=== PATIENT | male | born 1955 ===

== ENCOUNTER → 2020-02-01 10:46 | Outpatient (BNVA) | payer OTHER, SELFPAY | PROVIDERS: PCP Internal Medicine; Referring Provider Internal Medicine; Visit Provider Urology | DX: Z76.89 Persons encountering health services in other specified circumstances (principal) ==

== ENCOUNTER → 2021-02-19 11:44 | Outpatient (BNVA) | payer OTHER, SELFPAY | PROVIDERS: PCP Internal Medicine; Visit Provider Urology ==

== ENCOUNTER → 2021-03-31 11:53 | Outpatient (BNVA) | payer OTHER, SELFPAY | PROVIDERS: PCP Internal Medicine; Visit Provider Urology ==

== ENCOUNTER 2021-04-06 05:56 | Day surgery (SDC) | payer OTHER, SELFPAY ==
[2021-03-30 15:20] VITALS: BMI 31.9
--- NOTE | 2021-04-03 09:44 | P.CONAN_ITS ---
Documented by User: Melanie Gabriel NP 04/03/21 09:44 HPI - Anesthesia Eval Consult details Narrative: 66yo M for Cystoscopy with Gemcitabine [facility] Active Problems Active Problems: All Active Problems (Updated 03/31/21 @ 12:46 by Kvng Armendariz MD) Bladder cancer (Acute) Past Medical History Medical History Back pain Bladder cancer History of kidney stones HTN (hypertension) Surgical History Surgical History History of cystoscopy Hx of transurethral destruction of bladder lesion Social History Social History Are you a primary long term care social worker to a significant other at home: No Do you presently have visiting nurse or other home services: No Have you been hit, kicked, punched, or otherwise hurt by someone within the past year? If so, by whom?: No Are you DNR?: No Advance Directives: No Advance Directives Information Provided: No Advance Directives on File: No Recently lost weight without trying: No Eating poorly because of decreased appetite: No Nutrition Risks: No Nutritional Risk Meds Allergies Allergy/AdvReac Type Severity Reaction Status Date / Time Penicillins [PENICILLINS] Allergy Unknown UNKNOWN Verified 03/30/21 14:49 Home Medications Medication Instructions Recorded Confirmed Last Taken Type amlodipine 5 mg 5 mg PO DAILY 02/19/21 03/30/21 Unknown History tablet losartan 25 mg 25 mg PO DAILY 02/19/21 03/30/21 Unknown History tablet Exam Exam Date and Time: April 03, 2021 0944 Height,Weight and Vital Signs: Height 5 ft 8 in Weight 95.254 kg Assessment and Plan Assessment Anesthesia Assessment: Chart Reviewed Documented by User: Corona Sandra MD 04/06/21 07:14 [facility] Past Medical History Medical History Back pain Bladder cancer History of kidney stones HTN (hypertension) Family History Family history of problems with anesthesia: No Surgical History Surgical History History of cystoscopy Hx of transurethral destruction of bladder lesion History of Problems with Anesthesia: No Social History Social History Are you a primary long term care social worker to a significant other at home: No Do you presently have visiting nurse or other home services: No Have you been hit, kicked, punched, or otherwise hurt by someone within the past year? If so, by whom?: No Are you DNR?: No Advance Directives: No Advance Directives Information Provided: No Advance Directives on File: No Recently lost weight without trying: No Eating poorly because of decreased appetite: No Nutrition Risks: No Nutritional Risk Meds Allergies Allergy/AdvReac Type Severity Reaction Status Date / Time Penicillins [PENICILLINS] Allergy Unknown UNKNOWN Verified 03/30/21 14:49 Home Medications Medication Instructions Recorded Confirmed Last Taken Type amlodipine 5 mg 5 mg PO DAILY 02/19/21 03/30/21 Unknown History tablet losartan 25 mg 25 mg PO DAILY 02/19/21 03/30/21 Unknown History tablet Exam Airway Mallampati Class: II TM Dist: >3cm Neck ROM: Full Loose/Missing/Broken Teeth: No Heart: [id number] Lungs: cta b/l Assessment and Plan Assessment Anesthesia Assessment: Anesthesia Plan Discussed Final Anesthetic Review Family History of Problems with Anesthesia: No History of Problems with Anesthesia: No NPO: Yes ASA Class: III Final Preanesthetic Review: No Changes in Pt Med Stat, Meds/Allgs Chart Reviewed, Consent Obtained/Reviewed and Anes Risks/Benef Reviewed Patient Risk: Intermediate Procedure Risk: Low Assessment/Block/Sedation in SS: Assess/Block/Sedation-SS Anesthetic Plan Anesthetic Plan: GA and Agree w/ Assess. and Plan Disposition: Standard PACU
[2021-04-06] VITALS (11 sets, daily range): BP systolic 118–155; BP diastolic 84–96; PULSE 71–80; RESP 16–18; TEMP 36.2–36.7; O2SAT 96–100
[2021-04-06] MEDS: Lactated Ringers 1,000 ML 100 ML IVCONT (06:31)
--- NOTE | 2021-04-06 07:57 | MHC.SHP ---
Pre-Procedural Eval Section A Date of Service: 04/06/21 The patient is an INPATIENT: No Changes since office visit: No Cold of Flu in the past 2 weeks, No New Medical Problems, No Changes in Medication and No Patient answered all questions The History & Physical has been completed within 30 days and I have reviewed it.: Yes Section B Chief Complaint: neoplasm of bladder Allergies: Allergies Allergy/AdvReac Type Severity Reaction Status Date / Time Penicillins [PENICILLINS] Allergy Unknown UNKNOWN Verified 03/30/21 14:49 Plan Diagnosis/Plan: Unchanged (cysto, bladder biopsy, gemcitabine) I have reviewed the history and physical and performed a pertinent physical examination on my patient. No changes have occurred unless specified.
[2021-04-06] MEDS: levoFLOXacin 500 MG TABLET PO (08:00)
--- NOTE | 2021-04-06 08:35 | W.PM.OPN ---
Operative Note Operative Note Date of Service: 04/06/21 Narrative: PreOperative Diagnosis: bladder cancer Post Operative Diagnosis: bladder cancer Procedure: bladder biopsy with extensive fulguration and Gemcitabine installation Surgeon: Dr Kvng Armendariz Anesthesia: general Indications for procedure: 66-year-old male. Prior diagnosis with high-grade superficial bladder cancer. Due to COVID had not presented for check cystoscopy. Recommendation for cystoscopy in operating room with bladder biopsy and gemcitabine. He had not completed induction gemcitabine. Procedure: After informed consent was verified the patient was brought to the operating room and placed in a supine position. Anesthesia was administered per protocol. the patient was placed in a modified dorsal lithotomy position and prepped and draped in a sterile fashion. Safety pause time-out was performed. Antibiotics were confirmed. 24 Filipino cystoscope inserted. There was small superficial regrowth on the posterior wall at the trigone and along the base of the trigone. There were changes throughout the bladder superficial. Biopsies were taken at 2 locations. The trigone where there was superficial mucosal change was fulgurated. At the completion of the procedure the bladder was irrigated. The cystoscope was removed. A [address] Duque catheter was inserted into the bladder. 10 cc was placed in the balloon. 2 g of gemcitabine in 100 cc of normal saline was instilled into the bladder. the flow from the catheter was left clamped. The inflow to the catheter was attached to a 3 L normal saline bag. The patient Tolerated the procedure well. They were extubated in the operating room and transferred in stable condition to the recovery area. Gemcitabine will remain in the bladder for 1 hour. At the completion of 1 hour the clamp will be removed. The gemcitabine will be allowed to egress to the urine collection bag. The 3 L bag of normal saline will be run at maximum rate through the bladder in order to dilute any residual gemcitabine. The Duque catheter will then be removed. Pathology: Bladder biopsies, recurrent superficial bladder cancer Drains: 3 way catheter
[2021-04-06] MEDS: oxyCODONE HCl Immed Release 5 MG TABLET 10 MG PO (08:52)
[2021-04-06] MEDS: Acetaminophen 325 MG TABLET 650 MG PO (08:52)
[2021-04-06] MEDS: fentaNYL citrate/PF 100 MCG/2 ML VIAL 50 MCG IVPUSH (09:24)
== END 2021-04-06 11:21 | disposition home or self-care (01) ==
PROVIDERS: PCP Internal Medicine; Visit Provider Urology
PROC: 0TJB8ZZ Inspection of Bladder, Via Natural or Artificial Opening Endoscopic (ICD-10-PCS; CPT 52000; principal; 2021-04-06 07:30)
DX: C67.9 Malignant neoplasm of bladder, unspecified (principal); I10 Essential (primary) hypertension; Z87.442 Personal history of urinary calculi
CPT/HCPCS: 52224; 51720; 88305; J2405; J3010; J9201

== ENCOUNTER 2021-04-15 15:21 | Outpatient (REF) | payer OTHER, SELFPAY ==
[2021-04-15 16:51] LABS: Urine Cytology See Pathology rpt
== END 2021-04-15 15:22 | disposition home or self-care (01) ==
LOC: HO.LNP 15:21
PROVIDERS: PCP Internal Medicine; Visit Provider Urology
DX: C67.9 Malignant neoplasm of bladder, unspecified (principal)
CPT/HCPCS: 88112

== ENCOUNTER → 2021-05-20 13:20 | Outpatient (BNVA) | payer OTHER, SELFPAY | PROVIDERS: PCP Internal Medicine; Visit Provider Urology | DX: C67.9 Malignant neoplasm of bladder, unspecified (principal) | CPT/HCPCS: 99212 ==

== ENCOUNTER 2021-08-20 10:08 | Outpatient (REF) | payer OTHER, SELFPAY ==
[2021-08-20 16:21] LABS: Urine Cytology See Pathology rpt
== END 2021-08-20 10:09 | disposition home or self-care (01) ==
LOC: HO.LAB 10:08
PROVIDERS: Visit Provider Urology
DX: C67.9 Malignant neoplasm of bladder, unspecified (principal)
CPT/HCPCS: 52000; 88112

== ENCOUNTER 2021-11-25 08:51 | Outpatient (REF) | payer OTHER, SELFPAY ==
[2021-11-25 17:40] LABS: Urine Cytology See Pathology rpt
== END 2021-11-25 08:52 | disposition home or self-care (01) ==
LOC: HO.LAB 08:51
PROVIDERS: Visit Provider Urology
DX: C67.9 Malignant neoplasm of bladder, unspecified (principal)
CPT/HCPCS: 52000; 88112

== ENCOUNTER 2022-02-23 08:46 | Outpatient (REF) | payer OTHER, SELFPAY ==
[2022-02-23 17:51] LABS: Urine Cytology See Pathology rpt
== END 2022-02-23 08:47 | disposition home or self-care (01) ==
LOC: HO.LAB 08:46
PROVIDERS: PCP Internal Medicine; Visit Provider Urology
DX: C67.9 Malignant neoplasm of bladder, unspecified (principal)
CPT/HCPCS: 52000; 88112

== ENCOUNTER → 2022-04-28 10:59 | Outpatient (BNVA) | payer OTHER, SELFPAY | PROVIDERS: PCP Internal Medicine; Visit Provider Urology | DX: Z13.89 Encounter for screening for other disorder (principal) ==

== ENCOUNTER 2022-05-24 06:00 | Day surgery (SDC) | payer OTHER, SELFPAY ==
[2022-05-18 14:20] VITALS: BMI 31.9
[2022-05-24 06:20] VITALS: BP 139/84; PULSE 73; RESP 16; TEMP 36.3; O2SAT 96
[2022-05-24] MEDS: Lactated Ringers 1,000 ML 50 ML IVCONT (06:27)
--- NOTE | 2022-05-24 07:24 | HO.ANESPROP2 ---
HPI - Anesthesia Eval Consult details Narrative: cysto, bladder bx PMFSH Active Problems Active Problems: All Active Problems (Updated 04/15/21 @ 16:02 by Kvng Armendariz MD) Bladder cancer (Acute) Arthritis (Acute) Past Medical History Medical History Back pain Bladder cancer History of kidney stones HTN (hypertension) Family History Family history of problems with anesthesia: No Surgical History Surgical History History of cystoscopy Hx of cystoscopy Hx of transurethral destruction of bladder lesion History of Problems with Anesthesia: No Social History Social History Are you a primary career development engineer to a significant other at home: No Do you presently have visiting nurse or other home services: No Patient Tobacco Use Status: Never used Tobacco Use of substances other than those prescribed or required for medical reasons: Yes Substance Use Frequency: Occasionally Are you DNR?: No Advance Directives: No Advance Directives Information Provided: Yes Meds Allergies Allergy/AdvReac Type Severity Reaction Status Date / Time Penicillins [PENICILLINS] Allergy Unknown UNKNOWN Verified 05/24/22 06:07 Active Medications: Current Medications Lactated Ringer's (Lr) 1,000 mls @ 50 mls/hr IVCONT .Q20H SHARIF Last Admin: 05/24/22 06:27 Dose: 50 mls/hr Home Medications Medication Instructions Recorded Confirmed Last Taken Type amlodipine 5 mg tablet 5 mg PO DAILY 02/19/21 05/24/22 05/24/22 05:30 History losartan 25 mg tablet 25 mg PO DAILY 02/19/21 05/24/22 Unknown History Exam Exam Date and Time: May 24, 2022 0724 Height,Weight and Vital Signs: Height 5 ft 8 in Weight 95.254 kg Last Vital Signs Temp 97.3 F 05/24/22 06:20 Pulse 73 05/24/22 06:20 Resp 16 05/24/22 06:20 BP 139/84 05/24/22 06:20 Pulse Ox 96 05/24/22 06:20 O2 Del Method Room Air 05/24/22 06:20 Airway Mallampati Class: I TM Dist: >3cm Neck ROM: Full Heart: ok Lungs: ok Assessment and Plan Assessment Anesthesia Assessment: Anesthesia Plan Discussed Final Anesthetic Review Family History of Problems with Anesthesia: No History of Problems with Anesthesia: No NPO: Yes ASA Class: II Final Preanesthetic Review: No Changes in Pt Med Stat, Meds/Allgs Chart Reviewed, Consent Obtained/Reviewed and Anes Risks/Benef Reviewed Patient Risk: Low Procedure Risk: Low Anesthetic Plan Anesthetic Plan: GA, MAC: and Agree w/ Assess. and Plan Disposition: Standard PACU
--- NOTE | 2022-05-24 07:35 | MHC.SHP ---
Pre-Procedural Eval Section A Date of Service: 05/24/22 The patient is an INPATIENT: No Changes since office visit: Yes Cold of Flu in the past 2 weeks, Yes New Medical Problems, Yes Changes in Medication and Yes Patient answered all questions The History & Physical has been completed within 30 days and I have reviewed it.: No Section B Chief Complaint: Malignant neoplasm of bladder, unspecified Allergies: Allergies Allergy/AdvReac Type Severity Reaction Status Date / Time Penicillins [PENICILLINS] Allergy Unknown UNKNOWN Verified 05/24/22 06:07 Plan Diagnosis/Plan: Unchanged (bladder biopsy fulgeration) I have reviewed the history and physical and performed a pertinent physical examination on my patient. No changes have occurred unless specified. Time Spent With Patient Time: Total time managing care of this patient today ____ minutes.
[2022-05-24] MEDS: Acetaminophen 325 MG TABLET 650 MG PO (07:41)
--- NOTE | 2022-05-24 08:17 | W.PM.OPN ---
Operative Note Operative Note Date of Service: 05/24/22 Narrative: PreOperative Diagnosis: bladder cancer Post Operative Diagnosis: bladder cancer Procedure: cystoscopy, bladder biopsy, fulguration, Surgeon: Dr Kvng Armendariz Anesthesia: LMA Indications for procedure: Superficial bladder cancer. Here for cystoscopy, bladder biopsy. Evaluation. Procedure: After informed consent was verified the patient was brought to the operating room and placed in a supine position. Anesthesia was administered per protocol. The patient was placed in modified dorsal lithotomy position and prepped and draped in a sterile fashion. Safety pause time-out was performed. Antibiotics being given. Cystoscopy was performed. Evidence of prior biopsy and fulguration throughout the bladder. Examination under narrow band light showed no areas of the bladder that were concerning. At the left ureteric orifice superficial recurrent bladder cancer was present. These areas were removed using the biopsy forceps with multiple cores. A Glidewire was placed and a 6 Micronesian by 26 cm stent was placed. Gentle fulguration was performed on the inferior aspect of the ureteric orifice wall. The patient tolerated the procedure well. They were extubated in operating room and transferred in stable conditions recovery area. Pathology: Bladder biopsies Drains: None
[2022-05-24 08:24] VITALS: BP 121/86; PULSE 92; RESP 14; TEMP 37.3; O2SAT 96
[2022-05-24 08:29] VITALS: BP 116/86; PULSE 75; RESP 17; O2SAT 99
[2022-05-24 08:34] VITALS: BP 103/76; PULSE 77; RESP 17; O2SAT 97
[2022-05-24 08:39] VITALS: BP 116/83; PULSE 80; RESP 17; O2SAT 99
[2022-05-24 08:54] VITALS: BP 122/82; PULSE 68; RESP 18; TEMP 36.1; O2SAT 99
== END 2022-05-24 09:16 | disposition home or self-care (01) ==
PROVIDERS: PCP Internal Medicine; Visit Provider Urology
PROC: (CPT 52332; principal; 2022-05-24 07:30)
DX: C67.6 Malignant neoplasm of ureteric orifice (principal); Z87.442 Personal history of urinary calculi; I10 Essential (primary) hypertension; M54.9 Dorsalgia, unspecified; Z79.899 Other long term (current) drug therapy; Z88.0 Allergy status to penicillin
CPT/HCPCS: 52332; 52204; 88305; C1769; C2617; J1956; J2250; J3010

== ENCOUNTER → 2022-06-04 15:21 | Outpatient (BNVA) | payer OTHER, SELFPAY | PROVIDERS: PCP Internal Medicine; Visit Provider Urology | DX: Z13.89 Encounter for screening for other disorder (principal) ==

== ENCOUNTER 2022-06-21 05:55 | Day surgery (SDC) | payer OTHER, SELFPAY ==
[2022-06-16 13:32] VITALS: BMI 31.9
--- NOTE | 2022-06-18 14:17 | HO.ANESPROP2 ---
Documented by User: Melanie Gabriel NP 06/18/22 14:17 HPI - Anesthesia Eval Consult details Narrative: 67yo M for Left Cystoscopy, Ureteroroscopy, Retro, Laser w/ possible stent exchange s/p cysto, etc 04/2022 with GA-LMA 4 PMFSH Active Problems Active Problems: All Active Problems (Updated 04/15/21 @ 16:02 by Kvng Armendariz MD) Bladder cancer (Acute) Arthritis (Acute) Past Medical History Medical History Back pain Bladder cancer History of kidney stones HTN (hypertension) Family History Family history of problems with anesthesia: No Surgical History Surgical History (Updated 06/16/22 @ 13:25 by My Mendiola RN) History of cystoscopy Hx of cystoscopy Hx of cystoscopy Hx of transurethral destruction of bladder lesion History of Problems with Anesthesia: No Social History Social History Are you a primary congregational care pastor to a significant other at home: No Do you presently have visiting nurse or other home services: No Patient Tobacco Use Status: Never used Tobacco Have you been hit, kicked, punched, or otherwise hurt by someone within the past year? If so, by whom?: No Are you DNR?: No Advance Directives: No Advance Directives Information Provided: Yes (brochure mailed) Advance Directives on File: No Recently lost weight without trying: No Eating poorly because of decreased appetite: No Nutrition Risks: No Nutritional Risk Meds Allergies Allergy/AdvReac Type Severity Reaction Status Date / Time Penicillins [PENICILLINS] Allergy Unknown UNKNOWN Verified 05/24/22 06:07 Home Medications Medication Instructions Recorded Confirmed Last Taken Type amlodipine 5 mg tablet 5 mg PO DAILY 02/19/21 06/16/22 05/24/22 05:30 History losartan 25 mg tablet 25 mg PO DAILY 02/19/21 06/16/22 Unknown History Exam Exam Date and Time: June 18, 2022 1417 Height,Weight and Vital Signs: Height 5 ft 8 in Weight 95.254 kg Assessment and Plan Assessment Anesthesia Assessment: Chart Reviewed Final Anesthetic Review Family History of Problems with Anesthesia: No History of Problems with Anesthesia: No Documented by User: Bobby Shaw MD 06/21/22 14:29 PMFSH Past Medical History Medical History Back pain Bladder cancer History of kidney stones HTN (hypertension) Surgical History Surgical History (Updated 06/16/22 @ 13:25 by My Mendiola RN) History of cystoscopy Hx of cystoscopy Hx of cystoscopy Hx of transurethral destruction of bladder lesion Social History Social History Are you a primary congregational care pastor to a significant other at home: No Do you presently have visiting nurse or other home services: No Patient Tobacco Use Status: Never used Tobacco Have you been hit, kicked, punched, or otherwise hurt by someone within the past year? If so, by whom?: No Are you DNR?: No Advance Directives: No Advance Directives Information Provided: Yes (brochure mailed) Advance Directives on File: No Recently lost weight without trying: No Eating poorly because of decreased appetite: No Nutrition Risks: No Nutritional Risk Meds Allergies Allergy/AdvReac Type Severity Reaction Status Date / Time Penicillins [PENICILLINS] Allergy Unknown UNKNOWN Verified 05/24/22 06:07 Home Medications Medication Instructions Recorded Confirmed Last Taken Type amlodipine 5 mg tablet 5 mg PO DAILY 02/19/21 06/16/22 05/24/22 05:30 History losartan 25 mg tablet 25 mg PO DAILY 02/19/21 06/16/22 Unknown History Exam Airway Mallampati Class: I TM Dist: >3cm Neck ROM: Full Heart: ok Lungs: ok Assessment and Plan Assessment Anesthesia Assessment: Anesthesia Plan Discussed Final Anesthetic Review NPO: Yes ASA Class: II Final Preanesthetic Review: No Changes in Pt Med Stat, Meds/Allgs Chart Reviewed, Consent Obtained/Reviewed and Anes Risks/Benef Reviewed Patient Risk: Low Procedure Risk: Low Anesthetic Plan Anesthetic Plan: GA and Agree w/ Assess. and Plan Disposition: Standard PACU
--- NOTE | ~2022-06-21 | FL_ITS ---
EXAMINATION: XR FLUOROSCOPY WITH IMAGES CLINICAL INFORMATION: Stent, urology. COMPARISON: Fluoroscopic spot view 03/05/2019 TECHNIQUE: Fluoroscopy Supervised By: Dr. Kvng Armendariz. Fluoroscopy Time: 25 seconds. Cumulative Dose: 13.15 mGy. Images: 1. FINDINGS: There is left ureteral stent with tip overlying the upper pole collecting system. There is mild caliectasis upper pole and middle pole calyx. FL/FL guidance in OR IMPRESSION: Fluoroscopy for urologic procedure.
[2022-06-21 11:56] VITALS: BP 153/96; PULSE 72; RESP 16; TEMP 36.4; O2SAT 96
[2022-06-21] MEDS: Lactated Ringers 1,000 ML 100 ML IVCONT (12:06)
--- NOTE | 2022-06-21 13:49 | MHC.SHP ---
Pre-Procedural Eval Section A Date of Service: 06/21/22 The patient is an INPATIENT: No Changes since office visit: No Cold of Flu in the past 2 weeks, No New Medical Problems, No Changes in Medication and No Patient answered all questions The History & Physical has been completed within 30 days and I have reviewed it.: Yes Section B Chief Complaint: Malignant neoplasm of bladder, unspecified Details of Present Illness: left distal ureter superficial bladder cancer, Relevant Family History (Specify if Yes): No Relevant Social History: None Present Medications: see Short Stay Collaborative assessment Medical History: Significant History History of Previous Operations: Relevant previous surgery/procedure and date(s) Allergies: Allergies Allergy/AdvReac Type Severity Reaction Status Date / Time Penicillins [PENICILLINS] Allergy Unknown UNKNOWN Verified 05/24/22 06:07 Review of Systems Sugical H&P ROS: Negative: Constitution, Cardiovascular, Respiratory, Neurological, Psychiatric, Hem-Onc, Allergic/Immunologic, Gastrointestinal, Genitourinary, Musculoskeletal, Integumentary, Endocrine and Eyes/Ears/Nose/Throat Exam Surgical H&P Exam: Normal: HEENT, Normal: Heart, Normal: Lungs, Normal: Extremities, Normal: Abdomen, Normal: Skin and Normal: Neurological Plan Diagnosis/Plan: Unchanged ( cystoscopy, left stent removal, left ureteroscopy with laser of lesion, ureteric orifice incision, stent placement) I have reviewed the history and physical and performed a pertinent physical examination on my patient. No changes have occurred unless specified. Time Spent With Patient Time: Total time managing care of this patient today ____ minutes.
[2022-06-21 15:06] VITALS: BP 142/89; PULSE 85; RESP 16; TEMP 36.2; O2SAT 96
[2022-06-21 15:11] VITALS: BP 136/88; PULSE 80; RESP 16; O2SAT 96
[2022-06-21 15:16] VITALS: BP 138/94; PULSE 70; RESP 16; O2SAT 96
[2022-06-21] MEDS: Phenazopyridine HCL 100 MG TABLET PO (15:17)
[2022-06-21] MEDS: traMADoL HCL 50 MG TABLET PO (15:17)
[2022-06-21 15:21] VITALS: BP 138/94; PULSE 70; RESP 16; O2SAT 96
[2022-06-21 15:36] VITALS: BP 145/92; PULSE 72; RESP 18; TEMP 37; O2SAT 96
--- NOTE | 2022-06-21 18:23 | W.PM.OPN ---
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 Anesthesia was administered per protocol. The patient was prepped and draped in a sterile fashion in lithotomy position. Safety pause time-out was performed. Antibiotics being given. cystoscopy performed. Bladder had indwelling left stent. There was evidence of stent irritation. The stent was grasped and removed without difficulty. The bladder was emptied. Retrograde examination performed. There did not appear to be any significant filling defect. sensor guidewire placed up to renal pelvis. Rigid diagnostic ureteroscopy performed. No evidence of bladder cancer beyond the opening of the distal ureter. After ureteroscopy performed the ureteral scope was removed. The open-ended catheter was placed back over the wire. The bladder was entered with the resectoscope. Using the Woodard hot knife the left ureteric orifice was incised open. Resectoscope was removed. The open-ended catheter was removed. The wire was backloaded through a cystoscope. A 7 Polish by 26 cm double-J stent was placed without difficulty. The patient tolerated the procedure well was extubated in operating room transferred in stable condition to the recovery area findings were discussed in recovery Pathology: none Drains: stent described
== END 2022-06-21 15:55 | disposition home or self-care (01) ==
PROVIDERS: PCP Internal Medicine; Visit Provider Urology
PROC: (CPT 52341; principal; 2022-06-21 12:00)
DX: C67.9 Malignant neoplasm of bladder, unspecified (principal); Z46.6 Encounter for fitting and adjustment of urinary device; I10 Essential (primary) hypertension; Z87.442 Personal history of urinary calculi; M54.9 Dorsalgia, unspecified; Z79.899 Other long term (current) drug therapy; Z88.0 Allergy status to penicillin
CPT/HCPCS: 52341; 52332; C1758; C1769; C2617; J1956; J3010; Q9967

== ENCOUNTER → 2022-07-02 09:54 | Outpatient (BNVA) | payer OTHER, SELFPAY | PROVIDERS: PCP Internal Medicine; Visit Provider Urology ==

== ENCOUNTER → 2022-08-25 10:46 | Outpatient (BNVA) | payer OTHER, SELFPAY | PROVIDERS: Visit Provider Urology | DX: Z46.6 Encounter for fitting and adjustment of urinary device (principal); N20.0 Calculus of kidney | CPT/HCPCS: 52310 ==

== ENCOUNTER 2022-10-08 09:11 | Outpatient (REF) | payer OTHER, SELFPAY ==
[2022-10-08 10:30] LABS: Appearance Urine Clear; Color Urine Yellow; Glucose Urine UA Negative (Negative); Leukocyte Esterase Urine Negative (Negative); Nitrite Urine Negative (Negative); Specific Gravity - Urine 1.015 (1.005-1.025); UMIC TRIGGER UA YES; Urine Blood Moderate (2+) (Negative); Urine Ketones Negative (Negative); Urine Protein Negative (Neg-Trace)
[2022-10-08 10:35] LABS: Bacteria Urine None Seen (None Seen); Hyaline Casts Urine 0-2 /LPF (0-2); Squamous Epithelial Cell Urine 0-2 /HPF (0-2); WBC Urine 0-5 /HPF (0-5)
== END 2022-10-08 09:12 | disposition home or self-care (01) ==
LOC: HO.LNP 09:11
PROVIDERS: Visit Provider Urology
DX: C67.9 Malignant neoplasm of bladder, unspecified (principal); R82.90 Unspecified abnormal findings in urine
CPT/HCPCS: 81001; 81003; 87086

== ENCOUNTER 2022-12-21 08:52 | Outpatient (AMB) | payer OTHER, SELFPAY ==
--- NOTE | 2022-12-21 08:53 | A.OFFVIS_ITS ---
Intake Intake Visit Reasons: 4m/cysto(Bladder Ca) Intake Note: Patient is Present for Cystoscopy Urology Med: Tamsulosin Antibiotic Allergy: Penicillins Blood Thinner:None Pharmacy: [facility] Disposable Cystoscope lot:[id number] exp:07/11/2024 Allergies Penicillins [PENICILLINS] Allergy (Unknown, Verified 12/21/22 08:55) UNKNOWN Mitomycin/cytarabine Allergy (Mild, Uncoded 02/10/23 11:55) Hives HPI HPI Comments History of Present Illness Details Zen is a pleasant male. He is a patient of Dr. Poon. He is seen for the following urologic issues - bladder cancer - nephrolithiasis 3m cysto f/u - will need 3 week boost MM C/Cytarabine Bladder Cancer: Superficial CIS Recurrent Bladder cancer was initially diagnosed Dr Armendariz 03/19. Bladder intervention(s) performed 03/19 , TURBT, Tis carcinoma in situ - 04/20 cysto bladder biopsy high-grade CIS - 04/21 TURBT with high-grade Ta and CIS - induction gemcitabine - 05/20 TURBT high grade in left UO Recurrence Risk per EORTC High Risk. 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 08/17 renal ultrasound. Bilateral renal cysts. Small stone left side - 04/21 MRI pelvis normal prostate no abnormalities noticed on wall of bladder Immunotherapy Induction 04/21. Boost 11/19, Induction [facility]/Cytarabine 05/20 Nephrolithiasis/Urolithiasis: They are here for further evaluation of nephrolithiasis. Urolithiasis was diagnosed ongoing - prior renal cyst and nephrolithiasis. The patient previously had kidney stones whose composition w unknown. 24 Hour urine evaluation none on file. Prior treatment(s) include observation. Prior imaging includes 01/16 , a renal ultrasound - 3 cyst on right kidney. 7 mm stone. Left kidney 3 cysts up to 2.5 cm with 6 mm stone. Complex cyst on left side Current therapeutic plan will be to continue with imaging surveillance [facility] Medical History HTN (hypertension) Back pain History of kidney stones Bladder cancer Surgical History Hx of cystoscopy Hx of cystoscopy History of cystoscopy Hx of transurethral destruction of bladder lesion Social History Are you a primary rn transitional care to a significant other at home: No Do you presently have visiting nurse or other home services: No Patient Tobacco Use Status: Never used Tobacco Review of Systems Const Denies chills and Denies fever(s) Card Reports no additional complaints and Denies syncope Resp Denies cough GI Denies abdominal pain and Denies heartburn Reports as per HPI and Denies change in libido Neuro Denies syncope Psych Denies change in libido Endo Denies change in libido Physical Exam Const General: cooperative, healthy appearing, comfortable and no acute distress Orientation/consciousness: patient oriented x3 HEENT Face and sinus: Yes normal facial exam Mouth: moist mucous membranes Neck Neck: Yes normal visual inspection, Yes full ROM and Yes trachea midline Chest Chest palpation & inspection: normal inspection of the chest Resp Effort & Inspection: normal respiratory effort, able to speak in complete sentences and no respiratory distress GI Inspection: Yes normal to inspection Back/Spine/Pelvis Cervical Spine: normal cervical lordosis Thoracic/Lumbar Spine: thoracic and lumbar spine normal to inspection Skin General skin exam: no rashes or lesions noted Neuro General: patient oriented x3, gait normal, tone normal and moves all extremities Extrem General: Yes normal to inspection and Yes capillary refill normal Office Procedures Cystoscopy Consent Discussed risk and benefit or proposed procedure with the patient. Information consent for procedure given to the patient. Discussed technical aspects, risks, benefits and alternatives in full. Addressed all of the patient's questions and concerns regarding the procedure. The patient demonstrated knowledge and understanding. They wish to proceed with this procedure. Preparation The patient was prepped in the usual manner. A warp doffer was present and in the room. Genitalia was prepped with betadine solution in a sterile manner. Lidocaine Jelly 2% was placed into the urethra and 16Fr flexible Olympus cystoscope was inserted into the meatus after adequate lubrication. Procedure Meatus circumcised Urethra anterior posterior urethra normal Prostatic Urethra unremarkable Bladder examination with retroflexion of cystoscope Bladder Orifices normal shape and position Bladder Capacity medium Trabeculations grade 2 Cellule Formation - Diverticulum Formation - Mucosal Erythema - Bladder Tumor - 14176-[id number] DISPOSABLE SCOPE URO-G FLEXIBLE SCOPE Procedure code (CPT) selection complete Office Meds lidocaine HCl 2 % mucosal jelly in applicator Performing Provider: Kvng Armendariz MD Performing Location: [facility] [place] [facility] Administered by: Nick Chopra LPN on 12/21/22 09:08 Dose Route Admin Location Dispensed Lot Number Expiration Date ND Commission Sales Associate 10 mL intra-urethral 10 mL nitrofurantoin monohydrate/macrocrystals 100 mg capsule Performing Provider: Kvng Armendariz MD Performing Location: [facility] [place] [facility] Administered by: Nick Chopra LPN on 12/21/22 09:08 Dose Route Admin Location Dispensed Lot Number Expiration Date NDC Commission Sales Associate 100 mg PO 1 cap naproxen 500 mg tablet Performing Provider: Kvng Armendariz MD Performing Location: [facility] [place] [facility] Administered by: Nick Chopra LPN on 12/21/22 09:08 Dose Route Admin Location Dispensed Lot Number Expiration Date NDC Commission Sales Associate 500 mg PO 1 tab Results AMB Urinalysis, Automated UA Leukoctes 0 Jordan/uL Last Edit by URI Starkey on 12/21/22 09:06 UA Nitrite Negative Last Edit by Melanie Martins Osei on 12/21/22 09:06 UA Urobilinogen 0.2 mg/dL Last Edit by Melanie Martins A on 12/21/22 09:0 6 UA Protein 0 mg/dL Last Edit by Melanie Martins Osei on 12/21/22 09:06 UA pH 5.5 Last Edit by Melanie Martins A on 12/21/22 09:06 UA Blood 200 Devang/uL Last Edit by URI Starkey on 12/21/22 09:06 UA Specific [place] 1.015 Last Edit by URI Starkey on 12/21/22 09: 06 UA Ketone Negative Last Edit by EMMANUEL StarkeyA on 12/21/22 09:06 UA Bilirubin 0 mg/dL Last Edit by Melanie Martins [facility] on 12/21/22 09:06 UA Glucose 0 mg/dL Last Edit by URI Starkey on 12/21/22 09:06 Results Reviewed Results Reviewed: Laboratory Last Values Urine pH (Auto) 5.5 12/21/22 08:56 Specific [place] (Auto) 1.015 12/21/22 08:56 Urine Protein (Auto) 0 mg/dL 12/21/22 08:56 Glucose (UA)(Auto) 0 mg/dL 12/21/22 08:56 Urine Ketones (Auto) Negative 12/21/22 08:56 Urine Blood (Auto) 200 Devang/uL 12/21/22 08:56 Urine Nitrite (Auto) Negative 12/21/22 08:56 Urine Bilirubin (Auto) 0 mg/dL 12/21/22 08:56 Urine Urobilinogen (Auto) 0.2 mg/dL 12/21/22 08:56 Leukocyte Esterase (Auto) 0 Jordan/uL 12/21/22 08:56 Assessment & Plan Assessment & Plan (1) Bladder cancer: Comment: 03/19 high-grade superficial 04/21 CIS Code(s): C67.9 - Malignant neoplasm of bladder, unspecified Qualifiers: Bladder location: unspecified site Qualified Code(s): C67.9 - Malignant neoplasm of bladder, unspecified Plan Three week post mitomycin-C with therapy Orders: Orders AMB Urinalysis Automated 12/21/22 Z13.9 - Encounter for screening, unspecified AMB Cystoscopy 12/21/22 C67.9 - Malignant neoplasm of bladder, unspecified Urine Cytology 12/21/22 C67.9 - Malignant neoplasm of bladder, unspecified Patient Instructions: Imaging studies, laboratory and physical exam results were discussed and reviewed in detail. No major barriers to patient understanding were identified. An opportunity to ask questions regarding the treatment plan was provided. All questions were answered. The patient expressed understanding and agreement with the above treatment plan. The patient is aware they should contact our office by phone for worsening of their current condition or the appearance of new urologic symptoms. Compliance is encouraged with any medications and followup testing that is ordered. It is a privilege to participate in the urologic care of your patient. If you have any questions or concerns regarding treatment for the above conditions, or other urologic issues, please do not hesitate to contact me. The office telephone contact is [phone]. This note is constructed using voice recognition software. While every effort has been made to ensure accuracy supervisor patching errors may have been included. Yours sincerely, Dr Kvng Armendariz MD, [facility] - Urology Providers of Expert, Compassionate Care for the Genitourinary System Coding Level of Care Code Est Pt Level 3 (22756) Diagnoses Malignant neoplasm of urinary bladder, unspecified site C67.9 Bladder location: unspecified site CPT Codes Cystoscopy - CPT: 11045-[id number] ([id number])
== END 2022-12-21 10:01 | disposition home or self-care (01) ==
PROVIDERS: PCP Internal Medicine; Visit Provider Urology
DX: C67.9 Malignant neoplasm of bladder, unspecified (principal)
CPT/HCPCS: 52000; 99213

== ENCOUNTER 2022-12-21 08:52 | Outpatient (REF) | payer OTHER, SELFPAY ==
[2022-12-21 16:53] LABS: Urine Cytology See Pathology rpt
== END 2022-12-21 08:53 | disposition home or self-care (01) ==
LOC: HO.LAB 08:52
PROVIDERS: PCP Internal Medicine; Visit Provider Urology
DX: C67.9 Malignant neoplasm of bladder, unspecified (principal)
CPT/HCPCS: 52000; 81003; 88112

== ENCOUNTER 2023-03-23 08:53 | Outpatient (AMB) | payer OTHER, SELFPAY ==
--- NOTE | 2023-03-23 09:00 | MHC.OFFVIS ---
Intake Intake Visit Reasons: 3M Cysto(Bladder Ca) Intake Note: Patient presents today for 3MO CYSTOSCOPY Bladder Ca Procedure: Meds: Tamsulosin Allergies to Antibiotic: Penicillins & Mitomycin Blood Thinner: None Urinalysis test cleared for Cysto Disposable Uro-G Cystoscope Cannula: Lot: [id number] Exp: 07/07/2024 Stove Cleaner Required: No Accompanied by: Self / Same As Patient Allergies Penicillins [PENICILLINS] Allergy (Unknown, Verified 03/23/23 09:01) UNKNOWN Mitomycin/cytarabine Allergy (Mild, Uncoded 03/23/23 09:01) Hives Medication List - Last Reconciled 03/23/23 by Kvng Armendariz MD amlodipine 5 mg PO DAILY diazepam 2 mg PO BID PRN 1 day losartan 25 mg PO DAILY tamsulosin 0.4 mg PO BEDTIME 90 days tramadol 50 mg PO Q6H PRN HPI HPI Comments History of Present Illness Details Zen is a pleasant male. He is a patient of Dr. Poon. He is seen for the following urologic issues - bladder cancer - nephrolithiasis Here for three-month surveillance - bladder looks better than it has previously Three-month follow-up with renal ultrasound Bladder Cancer: Superficial CIS Recurrent Bladder cancer was initially diagnosed Dr Armendariz 03/19. Bladder intervention(s) performed 03/19 , TURBT, Tis carcinoma in situ - 04/20 cysto bladder biopsy high-grade CIS - 04/21 TURBT with high-grade Ta and CIS - induction gemcitabine - 05/20 TURBT high grade in left UO Recurrence Risk per EORTC High Risk. 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 08/17 renal ultrasound. Bilateral renal cysts. Small stone left side - 04/21 MRI pelvis normal prostate no abnormalities noticed on wall of bladder Immunotherapy Induction 04/21. Boost 11/19, Induction [facility]/Cytarabine 05/20, Boost 12/20 3 weeks Nephrolithiasis/Urolithiasis: They are here for further evaluation of nephrolithiasis. Urolithiasis was diagnosed ongoing - prior renal cyst and nephrolithiasis. The patient previously had kidney stones whose composition w unknown. 24 Hour urine evaluation none on file. Prior treatment(s) include observation. Prior imaging includes 01/16 , a renal ultrasound - 3 cyst on right kidney. 7 mm stone. Left kidney 3 cysts up to 2.5 cm with 6 mm stone. Complex cyst on left side Current therapeutic plan will be to continue with imaging surveillance [facility] Medical History HTN (hypertension) Back pain History of kidney stones Bladder cancer Surgical History Hx of cystoscopy Hx of cystoscopy History of cystoscopy Hx of transurethral destruction of bladder lesion Social History Are you a primary patient care assistant to a significant other at home: No Do you presently have visiting nurse or other home services: No Patient Tobacco Use Status: Never used Tobacco Review of Systems Const Denies chills and Denies fever(s) Card Reports no additional complaints and Denies syncope Resp Denies cough GI Denies abdominal pain and Denies heartburn Reports as per HPI and Denies change in libido Neuro Denies syncope Psych Denies change in libido Endo Denies change in libido Physical Exam Const General: cooperative, healthy appearing, comfortable and no acute distress Orientation/consciousness: patient oriented x3 HEENT Face and sinus: Yes normal facial exam Mouth: moist mucous membranes Neck Neck: Yes normal visual inspection, Yes full ROM and Yes trachea midline Chest Chest palpation & inspection: normal inspection of the chest Resp Effort & Inspection: normal respiratory effort, able to speak in complete sentences and no respiratory distress GI Inspection: Yes normal to inspection Back/Spine/Pelvis Cervical Spine: normal cervical lordosis Thoracic/Lumbar Spine: thoracic and lumbar spine normal to inspection Skin General skin exam: no rashes or lesions noted Neuro General: patient oriented x3, gait normal, tone normal and moves all extremities Extrem General: Yes normal to inspection and Yes capillary refill normal Office Procedures Cystoscopy Consent Discussed risk and benefit or proposed procedure with the patient. Information consent for procedure given to the patient. Discussed technical aspects, risks, benefits and alternatives in full. Addressed all of the patient's questions and concerns regarding the procedure. The patient demonstrated knowledge and understanding. They wish to proceed with this procedure. Preparation The patient was prepped in the usual manner. A chemical reclamation equipment operator was present and in the room. Genitalia was prepped with betadine solution in a sterile manner. Lidocaine Jelly 2% was placed into the urethra and 16Fr flexible Olympus cystoscope was inserted into the meatus after adequate lubrication. Procedure Meatus circumcised Urethra anterior and posterior urethra normal Prostatic Urethra unremarkable with neovascularity Bladder examination with retroflexion of cystoscope Bladder Orifices normal shape and position Bladder Capacity medium Trabeculations grade 2 Cellule Formation small Diverticulum Formation - Mucosal Erythema - Bladder Tumor - [id number] DISPOSABLE SCOPE URO-G FLEXIBLE SCOPE Procedure code (CPT) selection complete Office Meds lidocaine HCl 2 % mucosal jelly in applicator Performing Provider: Kvng Armendariz MD Performing Location: [facility] [place] [facility] Administered by: Louisa Smith RN on 03/23/23 09:23 Dose Route Admin Location Dispensed Lot Number Expiration Date [facility] Senior Android Software Engineer 10 mL intra-urethral 10 mL nitrofurantoin monohydrate/macrocrystals 100 mg capsule Performing Provider: Kvng Armendariz MD Performing Location: [facility] [place] [facility] Administered by: Louisa Smith RN on 03/23/23 09:23 Dose Route Admin Location Dispensed Lot Number Expiration Date ND Senior Android Software Engineer 100 mg PO 1 cap naproxen 500 mg tablet Performing Provider: Kvng Armendariz MD Performing Location: [facility] [place] [facility] Administered by: Louisa Smith RN on 03/23/23 09:23 Dose Route Admin Location Dispensed Lot Number Expiration Date ND Senior Android Software Engineer 500 mg PO 1 tab Results AMB Urinalysis, Automated UA Leukoctes 0 Jordan/uL Last Edit by URI Roberson on 03/23/23 09:12 UA Nitrite Negative Last Edit by URI Roberson on 03/23/23 09:12 UA Urobilinogen 0.2 mg/dL Last Edit by URI Roberson on 03/23/23 09:12 UA Protein 0 mg/dL Last Edit by URI Roberson on 03/23/23 09:12 UA pH 6.0 Last Edit by URI Roberson on 03/23/23 09:12 UA Blood 200 Devang/uL Last Edit by URI Roberson on 03/23/23 09:12 3+ Medardo Coleman 03/23/23 09:12 UA Specific [place] 1.020 Last Edit by URI Roberson on 03/23/23 09:12 UA Ketone Negative Last Edit by URI Roberson on 03/23/23 09:12 UA Bilirubin 0 mg/dL Last Edit by Medardo Coleman Osei on 03/23/23 09:12 UA Glucose 0 mg/dL Last Edit by URI Roberson on 03/23/23 09:12 Results Reviewed Results Reviewed: Laboratory Last Values Urine pH (Auto) 6.0 03/23/23 09:10 Specific [place] (Auto) 1.020 03/23/23 09:10 Urine Protein (Auto) 0 mg/dL 03/23/23 09:10 Glucose (UA)(Auto) 0 mg/dL 03/23/23 09:10 Urine Ketones (Auto) Negative 03/23/23 09:10 Urine Blood (Auto) 200 Devang/uL 03/23/23 09:10 Urine Nitrite (Auto) Negative 03/23/23 09:10 Urine Bilirubin (Auto) 0 mg/dL 03/23/23 09:10 Urine Urobilinogen (Auto) 0.2 mg/dL 03/23/23 09:10 Leukocyte Esterase (Auto) 0 Jordan/uL 03/23/23 09:10 Assessment & Plan Assessment & Plan (1) Bladder cancer: Comment: 03/19 high-grade superficial 04/21 CIS Code(s): C67.9 - Malignant neoplasm of bladder, unspecified Qualifiers: Bladder location: unspecified site Qualified Code(s): C67.9 - Malignant neoplasm of bladder, unspecified Plan Three-month follow-up cysto, renal ultrasound Orders: Orders AMB Cystoscopy Today C67.9 - Malignant neoplasm of bladder, unspecified US renal BI 3 Months C67.9 - Malignant neoplasm of bladder, unspecified AMB Urinalysis Automated Today Z13.9 - Encounter for screening, unspecified Urine Cytology Today C67.9 - Malignant neoplasm of bladder, unspecified Patient Instructions: Imaging studies, laboratory and physical exam results were discussed and reviewed in detail. No major barriers to patient understanding were identified. An opportunity to ask questions regarding the treatment plan was provided. All questions were answered. The patient expressed understanding and agreement with the above treatment plan. The patient is aware they should contact our office by phone for worsening of their current condition or the appearance of new urologic symptoms. Compliance is encouraged with any medications and followup testing that is ordered. It is a privilege to participate in the urologic care of your patient. If you have any questions or concerns regarding treatment for the above conditions, or other urologic issues, please do not hesitate to contact me. The office telephone contact is [phone]. This note is constructed using voice recognition software. While every effort has been made to ensure accuracy fur cutting machine operator errors may have been included. Yours sincerely, Dr Kvng Armendariz MD, [facility] - Urology Providers of Expert, Compassionate Care for the Genitourinary System Coding Level of Care Code Est Pt Level 3 (79525) Diagnoses Malignant neoplasm of urinary bladder, unspecified site C67.9 Bladder location: unspecified site CPT Codes Cystoscopy - CPT: 17482-[id number] ([id number])
== END 2023-03-23 09:56 | disposition home or self-care (01) ==
PROVIDERS: PCP Internal Medicine; Visit Provider Urology
DX: C67.9 Malignant neoplasm of bladder, unspecified (principal); Z13.9 Encounter for screening, unspecified
CPT/HCPCS: 52000

== ENCOUNTER 2023-03-23 08:53 | Outpatient (REF) | payer OTHER, SELFPAY ==
[2023-03-23 16:45] LABS: Urine Cytology See Pathology rpt
== END 2023-03-23 08:54 | disposition home or self-care (01) ==
LOC: HO.LAB 08:53
PROVIDERS: PCP Internal Medicine; Visit Provider Urology
DX: C67.9 Malignant neoplasm of bladder, unspecified (principal)
CPT/HCPCS: 52000; 81003; 88112

== ENCOUNTER 2023-05-24 08:50 | Outpatient (REF) | payer OTHER, SELFPAY ==
[2023-05-24 17:39] LABS: Urine Cytology See Pathology rpt
== END 2023-05-24 08:51 | disposition home or self-care (01) ==
LOC: HO.LNP 08:50
PROVIDERS: PCP Internal Medicine; Visit Provider Urology
DX: C67.9 Malignant neoplasm of bladder, unspecified (principal)
CPT/HCPCS: 52000; 81003; 88112

== ENCOUNTER 2023-05-24 08:50 | Outpatient (AMB) | payer OTHER, SELFPAY ==
--- NOTE | 2023-05-24 08:59 | MHC.OFFVIS ---
Intake Intake Visit Reasons: 3M Cysto(Confirmed) Intake Note: Patient is Present for Cystoscopy Urology Med: Tamsulosin Antibiotic Allergy: Penicillins,Mitomycin,Cytarabine Blood Thinner: None Confirmed Pharmacy: [facility] URO- G Disposable Cystoscope lot: [id number] exp:12/23/25 Allergies Penicillins [PENICILLINS] Allergy (Unknown, Verified 05/24/23 09:03) UNKNOWN Mitomycin/cytarabine Allergy (Mild, Uncoded 05/24/23 09:03) Hives Medication List - Last Reconciled 05/24/23 by Kvng Armendariz MD amlodipine 5 mg PO DAILY diazepam 2 mg PO BID PRN 1 day finasteride 5 mg PO DAILY 90 days losartan 25 mg PO DAILY tamsulosin 0.4 mg PO BEDTIME 90 days tramadol 50 mg PO Q6H PRN HPI HPI Comments History of Present Illness Details Zen is a pleasant male. He is a patient of Dr. Poon. He is seen for the following urologic issues - bladder cancer - nephrolithiasis Here for three-month surveillance - blood in urine today Cytology pending Bladder cystoscopy clear Has mucosal erythema with in prostate and large neovascularity on prostate - images shown to patient Does state having increasing nocturia. Trial finasteride Bladder Cancer: Superficial CIS Recurrent Bladder cancer was initially diagnosed Dr Armendariz 03/19. Bladder intervention(s) performed 03/19 , TURBT, Tis carcinoma in situ - 04/20 cysto bladder biopsy high-grade CIS - 04/21 TURBT with high-grade Ta and CIS - induction gemcitabine - 05/20 TURBT high grade in left UO Recurrence Risk per EORTC High Risk. 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 08/17 renal ultrasound. Bilateral renal cysts. Small stone left side - 04/21 MRI pelvis normal prostate no abnormalities noticed on wall of bladder Immunotherapy Induction 04/21. Boost 11/19, Induction [facility]/Cytarabine 05/20, Boost 12/20 3 weeks Nephrolithiasis/Urolithiasis: They are here for further evaluation of nephrolithiasis. Urolithiasis was diagnosed ongoing - prior renal cyst and nephrolithiasis. The patient previously had kidney stones whose composition w unknown. 24 Hour urine evaluation none on file. Prior treatment(s) include observation. Prior imaging includes 01/16 , a renal ultrasound - 3 cyst on right kidney. 7 mm stone. Left kidney 3 cysts up to 2.5 cm with 6 mm stone. Complex cyst on left side Current therapeutic plan will be to continue with imaging surveillance [facility] Medical History HTN (hypertension) Back pain History of kidney stones Bladder cancer Surgical History Hx of cystoscopy Hx of cystoscopy History of cystoscopy Hx of transurethral destruction of bladder lesion Social History Are you a primary home care specialist to a significant other at home: No Do you presently have visiting nurse or other home services: No Patient Tobacco Use Status: Never used Tobacco Review of Systems Const Denies chills and Denies fever(s) Card Reports no additional complaints and Denies syncope Resp Denies cough GI Denies abdominal pain and Denies heartburn Reports as per HPI and Denies change in libido Neuro Denies syncope Psych Denies change in libido Endo Denies change in libido Physical Exam Const General: cooperative, healthy appearing, comfortable and no acute distress Orientation/consciousness: patient oriented x3 HEENT Face and sinus: Yes normal facial exam Mouth: moist mucous membranes Neck Neck: Yes normal visual inspection, Yes full ROM and Yes trachea midline Chest Chest palpation & inspection: normal inspection of the chest Resp Effort & Inspection: normal respiratory effort, able to speak in complete sentences and no respiratory distress GI Inspection: Yes normal to inspection Back/Spine/Pelvis Cervical Spine: normal cervical lordosis Thoracic/Lumbar Spine: thoracic and lumbar spine normal to inspection Skin General skin exam: no rashes or lesions noted Neuro General: patient oriented x3, gait normal, tone normal and moves all extremities Extrem General: Yes normal to inspection and Yes capillary refill normal Office Procedures Cystoscopy Consent Discussed risk and benefit or proposed procedure with the patient. Information consent for procedure given to the patient. Discussed technical aspects, risks, benefits and alternatives in full. Addressed all of the patient's questions and concerns regarding the procedure. The patient demonstrated knowledge and understanding. They wish to proceed with this procedure. Preparation The patient was prepped in the usual manner. A early childhood teacher assistant was present and in the room. Genitalia was prepped with betadine solution in a sterile manner. Lidocaine Jelly 2% was placed into the urethra and 16Fr flexible Olympus cystoscope was inserted into the meatus after adequate lubrication. Procedure Meatus normal position circumcised Urethra anterior and posterior urethra normal Prostatic Urethra median lip Bladder examination with retroflexion of cystoscope Bladder Orifices normal shape and position Bladder Capacity normal Trabeculations grade 1 Cellule Formation yes Diverticulum Formation - Mucosal Erythema - Bladder Tumor scarring [id number] DISPOSABLE SCOPE URO-G FLEXIBLE SCOPE Procedure code (CPT) selection complete Office Meds lidocaine HCl 2 % mucosal jelly in applicator Performing Provider: Kvng Armendariz MD Performing Location: [facility] [place] [facility] Administered by: Nick Chopra LPN on 05/24/23 09:16 Dose Route Admin Location Dispensed Lot Number Expiration Date NDC Legal Transcriptionist 10 mL intra-urethral 10 mL nitrofurantoin monohydrate/macrocrystals 100 mg capsule Performing Provider: Kvng Armendariz MD Performing Location: [facility] [place] [facility] Administered by: Nick Chopra LPN on 05/24/23 09:16 Dose Route Admin Location Dispensed Lot Number Expiration Date NDC Legal Transcriptionist 100 mg PO 1 cap naproxen 500 mg tablet Performing Provider: Kvng Armendariz MD Performing Location: [facility] [place] [facility] Administered by: Nick Chopra LPN on 05/24/23 09:16 Dose Route Admin Location Dispensed Lot Number Expiration Date NDC Legal Transcriptionist 500 mg PO 1 tab Results AMB Urinalysis, Automated UA Leukoctes 0 Jordan/uL Last Edit by URI Starkey on 05/24/23 09:12 UA Nitrite Negative Last Edit by URI Starkey on 05/24/23 09:12 UA Urobilinogen 0.2 mg/dL Last Edit by URI Starkey on 05/24/23 09:12 UA Protein 0 mg/dL Last Edit by URI Starkey on 05/24/23 09:12 UA pH 6.0 Last Edit by URI Starkey on 05/24/23 09:12 UA Blood 200 Devang/uL Last Edit by Melanie Martins, RMA on 05/24/23 09:12 UA Specific Melvin 1.015 Last Edit by Melanie Martins, RMA on 05/24/23 09:12 UA Ketone Negative Last Edit by Melanie Martins, RMA on 05/24/23 09:12 UA Bilirubin 0 mg/dL Last Edit by Melanie Martins RMA on 05/24/23 09:12 UA Glucose 5 mg/dL Last Edit by Melanie Martins, RMA on 05/24/23 09:12 Results Reviewed Results Reviewed: Laboratory Last Values Urine pH (Auto) 6.0 05/24/23 09:03 Specific Melvin (Auto) 1.015 05/24/23 09:03 Urine Protein (Auto) 0 mg/dL 05/24/23 09:03 Glucose (UA)(Auto) 5 mg/dL 05/24/23 09:03 Urine Ketones (Auto) Negative 05/24/23 09:03 Urine Blood (Auto) 200 Devang/uL 05/24/23 09:03 Urine Nitrite (Auto) Negative 05/24/23 09:03 Urine Bilirubin (Auto) 0 mg/dL 05/24/23 09:03 Urine Urobilinogen (Auto) 0.2 mg/dL 05/24/23 09:03 Leukocyte Esterase (Auto) 0 Jordan/uL 05/24/23 09:03 Assessment & Plan Assessment & Plan (1) Bladder outlet obstruction: Code(s): N32.0 - Bladder-neck obstruction Plan Trial finasteride Four month follow-up cystoscopy Orders: Orders AMB Urinalysis Automated Today Z13.9 - Encounter for screening, unspecified AMB Cystoscopy Today C67.9 - Malignant neoplasm of bladder, unspecified Urine Cytology Today C67.9 - Malignant neoplasm of bladder, unspecified Medications: New finasteride 5 mg PO DAILY 90 tabs 1RF 90 days N13.8 - Other obstructive and reflux uropathy, N32.0 - Bladder-neck obstruction, N40.1 - Benign prostatic hyperplasia with lower urinary tract symptoms, R33.9 - Retention of urine, unspecified Patient Instructions: Imaging studies, laboratory and physical exam results were discussed and reviewed in detail. No major barriers to patient understanding were identified. An opportunity to ask questions regarding the treatment plan was provided. All questions were answered. The patient expressed understanding and agreement with the above treatment plan. The patient is aware they should contact our office by phone for worsening of their current condition or the appearance of new urologic symptoms. Compliance is encouraged with any medications and followup testing that is ordered. It is a privilege to participate in the urologic care of your patient. If you have any questions or concerns regarding treatment for the above conditions, or other urologic issues, please do not hesitate to contact me. The office telephone contact is [phone]. This note is constructed using voice recognition software. While every effort has been made to ensure accuracy call worker person errors may have been included. Yours sincerely, Dr Kvng Armendariz MD, P[facility] - Urology Providers of Expert, Compassionate Care for the Genitourinary System Coding Level of Care Code Est Pt Level 4 (25972) Diagnoses Bladder outlet obstruction N32.0 CPT Codes Cystoscopy - CPT: 32317-[id number] ([id number])
== END 2023-05-24 09:47 | disposition home or self-care (01) ==
PROVIDERS: PCP Internal Medicine; Visit Provider Urology
DX: C67.9 Malignant neoplasm of bladder, unspecified (principal); N32.0 Bladder-neck obstruction; Z13.9 Encounter for screening, unspecified
CPT/HCPCS: 52000; 99214

== ENCOUNTER 2023-06-22 07:48 | Outpatient (REF) | payer OTHER, SELFPAY ==
--- NOTE | ~2023-06-22 | US_ITS ---
EXAMINATION: US RETROPERITONEAL LIMITED (RENAL ONLY) CLINICAL INFORMATION: Malignant neoplasm of bladder, unspecified. COMPARISON: MRI pelvis 04/29/2021. Renal ultrasound 08/23/2019. CT abdomen 02/12/2019. TECHNIQUE: Real-time imaging of the kidneys. FINDINGS: RIGHT KIDNEY: 12.1 x 5.1 x 7.3 cm (SAG x AP x TRV). The kidney is normal in size, contour, and echogenicity. Renal cortical thickness is normal. No hydronephrosis. There are multiple benign appearing cysts in the right kidney for which no imaging follow-up is recommended. A 6 mm and a 4 mm nonobstructing calculus are seen in the lower pole. LEFT KIDNEY: 11.8 x 6.0 x 5.4 cm (SAG x AP x TRV). The kidney is normal in size, contour, and echogenicity. Renal cortical thickness is normal. No renal calculi or hydronephrosis. There are multiple benign-appearing cysts for which no imaging follow-up is recommended. 5 mm nonobstructing calculus in the mid left kidney. BLADDER: Bilateral ureteral jets are demonstrated. US/US renal BI IMPRESSION: No visible bladder mass. Bilateral nonobstructing renal calculi without hydronephrosis.
== END 2023-06-22 07:49 | disposition home or self-care (01) ==
LOC: HO.US 07:48
PROVIDERS: PCP Internal Medicine; Visit Provider Urology
DX: C67.9 Malignant neoplasm of bladder, unspecified (principal)
CPT/HCPCS: 76775

== ENCOUNTER 2023-09-13 13:50 | Outpatient (REF) | payer OTHER, SELFPAY ==
[2023-09-13 16:36] LABS: Urine Cytology See Pathology rpt
== END 2023-09-13 13:51 | disposition home or self-care (01) ==
LOC: HO.LAB 13:50
PROVIDERS: PCP Internal Medicine; Visit Provider Urology
DX: C67.9 Malignant neoplasm of bladder, unspecified (principal); N32.0 Bladder-neck obstruction
CPT/HCPCS: 52000; 81003; 88112

== ENCOUNTER 2023-09-13 13:50 | Outpatient (AMB) | payer OTHER, SELFPAY ==
--- NOTE | 2023-09-13 13:57 | A.OFFVIS_ITS ---
Intake Visit Reasons: 4M Cysto(Bladder Ca) Intake Note: Patient is Present for Cystoscopy Urology Med: Tamsulosin, Finasteride Antibiotic Allergy: Penicillin, Mitomycin Blood Thinner: None URO- G Disposable Cystoscope lot: [id number] exp: 04/14/2026 Hoop Punch Operator Helper Required: No Allergies Penicillins [PENICILLINS] Allergy (Unknown, Verified 09/13/23 14:02) UNKNOWN Mitomycin/cytarabine Allergy (Mild, Uncoded 09/13/23 14:02) Hives HPI Comments Details: Zen is a pleasant male. He is a patient of Dr. Poon. He is seen for the following urologic issues - bladder cancer - nephrolithiasis Here for 6-month surveillance - blood in urine today Finasteride follow-up Had not taken finasteride Bladder cystoscopy clear Has mucosal erythema with in prostate and large neovascularity on prostate - images shown to patient Does state having increasing nocturia. Will trial finasteride Three-month follow-up check cysto May benefit from boost mitomycin-C with cytarabine at this time Bladder Cancer: Superficial CIS Recurrent Bladder cancer was initially diagnosed Dr Armendariz 03/19. Bladder intervention(s) performed 03/19 , TURBT, Tis carcinoma in situ - 04/20 cysto bladder biopsy high-grade CIS - 04/21 TURBT with high-grade Ta and CIS - induction gemcitabine - 05/20 TURBT high grade in left UO Recurrence Risk per EORTC High Risk. 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 08/17 renal ultrasound. Bilateral renal cysts. Small stone left side - 04/21 MRI pelvis normal prostate no abnormalities noticed on wall of bladder Immunotherapy Induction 04/21. Boost 11/19, Induction [facility]MC/Cytarabine 05/20, Boost 12/20 3 weeks Nephrolithiasis/Urolithiasis: They are here for further evaluation of nephrolithiasis. Urolithiasis was diagnosed ongoing - prior renal cyst and nephrolithiasis. The patient previously had kidney stones whose composition w unknown. 24 Hour urine evaluation none on file. Prior treatment(s) include observation. Prior imaging includes 01/16 , a renal ultrasound - 3 cyst on right kidney. 7 mm stone. Left kidney 3 cysts up to 2.5 cm with 6 mm stone. Complex cyst on left side Current therapeutic plan will be to continue with imaging surveillance [facility] Medical History HTN (hypertension) Back pain History of kidney stones Bladder cancer Surgical History Hx of cystoscopy Hx of cystoscopy History of cystoscopy Hx of transurethral destruction of bladder lesion Social History Are you a primary health care aide to a significant other at home: No Do you presently have visiting nurse or other home services: No Patient Tobacco Use Status: Never used Tobacco Review of Systems Const Denies chills and Denies fever(s) Card Reports no additional complaints and Denies syncope Resp Denies cough GI Denies abdominal pain and Denies heartburn Reports as per HPI and Denies change in libido Neuro Denies syncope Psych Denies change in libido Endo Denies change in libido Physical Exam Const General: cooperative, healthy appearing, comfortable and no acute distress Orientation/consciousness: patient oriented x3 HEENT Face and sinus: Yes normal facial exam Mouth: moist mucous membranes Neck Neck: Yes normal visual inspection, Yes full ROM and Yes trachea midline Chest Chest palpation & inspection: normal inspection of the chest Resp Effort & Inspection: normal respiratory effort, able to speak in complete sentences and no respiratory distress GI Inspection: Yes normal to inspection Back/Spine/Pelvis Cervical Spine: normal cervical lordosis Thoracic/Lumbar Spine: thoracic and lumbar spine normal to inspection Skin General skin exam: no rashes or lesions noted Neuro General: patient oriented x3, gait normal, tone normal and moves all extremities Extrem General: Yes normal to inspection and Yes capillary refill normal Office Procedures Cystoscopy Consent Discussed risk and benefit or proposed procedure with the patient. Information consent for procedure given to the patient. Discussed technical aspects, risks, benefits and alternatives in full. Addressed all of the patient's questions and concerns regarding the procedure. The patient demonstrated knowledge and understanding. They wish to proceed with this procedure. Preparation The patient was prepped in the usual manner. A log roller was present and in the room. Genitalia was prepped with betadine solution in a sterile manner. Lidocaine Jelly 2% was placed into the urethra and 16Fr flexible Olympus cystoscope was inserted into the meatus after adequate lubrication. Procedure Cystoscopy performed using a disposable Urovue digital 16 Slovenian cystoscope. Meatus circumcised Urethra anterior and posterior urethra normal Prostatic Urethra prominent median lobe - with neovascularity on reflex Bladder examination with retroflexion of cystoscope Bladder Orifices normal shape and position Bladder Capacity median Trabeculations grade 2 Cellule Formation yes Diverticulum Formation - Mucosal Erythema - Bladder Tumor -evidence of prior resection [id number] DISPOSABLE SCOPE URO-G FLEXIBLE SCOPE Procedure code (CPT) selection complete Office Meds lidocaine HCl 2 % mucosal jelly in applicator Performing Provider: Kvng Armendariz MD Performing Location: [facility] [place] [facility] Administered by: Glenroy Green RN on 09/13/23 14:17 Dose Route Admin Location Dispensed Lot Number Expiration Date ND Forklift Material Handler 10 mL intra-urethral 10 mL nitrofurantoin monohydrate/macrocrystals 100 mg capsule Performing Provider: Kvng Armendariz MD Performing Location: [facility] [place] [facility] Administered by: Glenroy Green RN on 09/13/23 14:17 Dose Route Admin Location Dispensed Lot Number Expiration Date ND Forklift Material Handler 100 mg PO 1 cap naproxen 500 mg tablet Performing Provider: Kvng Armendariz MD Performing Location: [facility] [place] [facility] Administered by: Glenroy Green RN on 09/13/23 14:17 Dose Route Admin Location Dispensed Lot Number Expiration Date ND Forklift Material Handler 500 mg PO 1 tab Results AMB Urinalysis, Automated UA Leukoctes 0 Jordan/uL Last Edit by URI Starkey on 09/13/23 14:22 UA Nitrite Negative Last Edit by URI Starkey on 09/13/23 14:22 UA Urobilinogen 0.2 mg/dL Last Edit by URI Starkey on 09/13/23 14:2 2 UA Protein 15 mg/dL Last Edit by URI Starkey on 09/13/23 14:22 UA pH 5.5 Last Edit by URI Starkey on 09/13/23 14:22 UA Blood 200 Devang/uL Last Edit by Melanie Darbyro, RMA on 09/13/23 14:22 UA Specific [place]ide 1.020 Last Edit by Melanie Martins, RMA on 09/13/23 14: 22 UA Ketone Negative Last Edit by Melanie Martins, RMA on 09/13/23 14:22 UA Bilirubin 0 mg/dL Last Edit by Melanie Martins, RMA on 09/13/23 14:22 UA Glucose 0 mg/dL Last Edit by Melanie Eliezer, RMA on 09/13/23 14:22 Results Reviewed Results Reviewed: Laboratory Last Values Urine pH (Auto) 5.5 09/13/23 14:07 Specific Wayside (Auto) 1.020 09/13/23 14:07 Urine Protein (Auto) 15 mg/dL 09/13/23 14:07 Glucose (UA)(Auto) 0 mg/dL 09/13/23 14:07 Urine Ketones (Auto) Negative 09/13/23 14:07 Urine Blood (Auto) 200 Devang/uL 09/13/23 14:07 Urine Nitrite (Auto) Negative 09/13/23 14:07 Urine Bilirubin (Auto) 0 mg/dL 09/13/23 14:07 Urine Urobilinogen (Auto) 0.2 mg/dL 09/13/23 14:07 Leukocyte Esterase (Auto) 0 Jordan/uL 09/13/23 14:07 Assessment & Plan Assessment & Plan (1) Bladder cancer: Comment: 03/19 high-grade superficial 04/21 CIS Code(s): C67.9 - Malignant neoplasm of bladder, unspecified Category: Medical Qualifiers: Bladder location: unspecified site Qualified Code(s): C67.9 - Malignant neoplasm of bladder, unspecified (2) Bladder outlet obstruction: Code(s): N32.0 - Bladder-neck obstruction Category: Medical Plan Three-month follow-up check cysto Orders: Orders AMB Urinalysis Automated Today Z13.9 - Encounter for screening, unspecified AMB Cystoscopy Today C67.9 - Malignant neoplasm of bladder, unspecified Urine Cytology Today C67.9 - Malignant neoplasm of bladder, unspecified Patient Instructions: Imaging studies, laboratory and physical exam results were discussed and reviewed in detail. No major barriers to patient understanding were identified. An opportunity to ask questions regarding the treatment plan was provided. All questions were answered. The patient expressed understanding and agreement with the above treatment plan. The patient is aware they should contact our office by phone for worsening of their current condition or the appearance of new urologic symptoms. Compliance is encouraged with any medications and followup testing that is ordered. It is a privilege to participate in the urologic care of your patient. If you have any questions or concerns regarding treatment for the above conditions, or other urologic issues, please do not hesitate to contact me. The office telephone contact is [phone]. This note is constructed using voice recognition software. While every effort has been made to ensure accuracy fluorescent lighting model maker errors may have been included. Yours sincerely, Dr Kvng Armendariz MD, P[facility] - [facility]rology Providers of Expert, Compassionate Care for the Genitourinary System Coding Level of Care Code Est Pt Level 3 (76498) Diagnoses Malignant neoplasm of urinary bladder, unspecified site C67.9 Bladder location: unspecified site Bladder outlet obstruction N32.0 CPT Codes Cystoscopy - CPT: 59616-[id number] ([id number])
== END 2023-09-13 14:54 | disposition home or self-care (01) ==
PROVIDERS: PCP Internal Medicine; Visit Provider Urology
DX: C67.9 Malignant neoplasm of bladder, unspecified (principal); N32.0 Bladder-neck obstruction; Z13.9 Encounter for screening, unspecified
CPT/HCPCS: 52000; 99213

== ENCOUNTER 2024-01-17 08:53 | Outpatient (AMB) | payer OTHER, SELFPAY ==
--- NOTE | 2024-01-17 09:01 | MHC.OFFVIS ---
Intake Visit Reasons: 4M Cystoscopy(Bladder Ca) Intake Note: Patient is Present for Cystoscopy Urology Med: Finasteride, Tamsulosin Antibiotic Allergy: Penicillins Blood Thinner: None URO- G Disposable Cystoscope lot:[id number] exp:03/31/2026 Sent cytology No Recent FISH Cytology Last Urine Cytology: 09/14/23-Urine: Negative for high-grade urothelial carcinoma. Adjutant General Required: No Accompanied by: Self / Same As Patient Allergies Penicillins [PENICILLINS] Allergy (Unknown, Verified 01/17/24 09:05) UNKNOWN Mitomycin/cytarabine Allergy (Mild, Uncoded 01/17/24 09:05) Hives HPI Comments Details: Zen is a pleasant male. He is a patient of Dr. Poon. He is seen for the following urologic issues - bladder cancer - nephrolithiasis Three-month checkup Bladder cystoscopy clear Has mucosal erythema with in prostate and large neovascularity on prostate - images shown to patient Does state having increasing nocturia. Bladder Cancer: Superficial CIS Recurrent Bladder cancer was initially diagnosed Dr Armendariz 03/19. Bladder intervention(s) performed 03/19 , TURBT, Tis carcinoma in situ - 04/20 cysto bladder biopsy high-grade CIS - 04/21 TURBT with high-grade Ta and CIS - induction gemcitabine - 05/20 TURBT high grade in left UO Recurrence Risk per EORTC High Risk. 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 08/17 renal ultrasound. Bilateral renal cysts. Small stone left side - 04/21 MRI pelvis normal prostate no abnormalities noticed on wall of bladder Immunotherapy Induction 04/21. Boost 11/19, Induction [facility]/Cytarabine 05/20, Boost 12/20 3 weeks Nephrolithiasis/Urolithiasis: They are here for further evaluation of nephrolithiasis. Urolithiasis was diagnosed ongoing - prior renal cyst and nephrolithiasis. The patient previously had kidney stones whose composition w unknown. 24 Hour urine evaluation none on file. Prior treatment(s) include observation. Prior imaging includes 01/16 , a renal ultrasound - 3 cyst on right kidney. 7 mm stone. Left kidney 3 cysts up to 2.5 cm with 6 mm stone. Complex cyst on left side Current therapeutic plan will be to continue with imaging surveillance [facility] Medical History HTN (hypertension) Back pain History of kidney stones Bladder cancer Surgical History Hx of cystoscopy Hx of cystoscopy History of cystoscopy Hx of transurethral destruction of bladder lesion Social History Are you a primary college and career counselor to a significant other at home: No Do you presently have visiting nurse or other home services: No Patient Tobacco Use Status: Never used Tobacco Review of Systems Const Denies chills and Denies fever(s) Card Reports no additional complaints and Denies syncope Resp Denies cough GI Denies abdominal pain and Denies heartburn Reports as per HPI and Denies change in libido Neuro Denies syncope Psych Denies change in libido Endo Denies change in libido Physical Exam Const General: cooperative, healthy appearing, comfortable and no acute distress Orientation/consciousness: patient oriented x3 HEENT Face and sinus: Yes normal facial exam Mouth: moist mucous membranes Neck Neck: Yes normal visual inspection, Yes full ROM and Yes trachea midline Chest Chest palpation & inspection: normal inspection of the chest Resp Effort & Inspection: normal respiratory effort, able to speak in complete sentences and no respiratory distress GI Inspection: Yes normal to inspection Back/Spine/Pelvis Cervical Spine: normal cervical lordosis Thoracic/Lumbar Spine: thoracic and lumbar spine normal to inspection Skin General skin exam: no rashes or lesions noted Neuro General: patient oriented x3, gait normal, tone normal and moves all extremities Extrem General: Yes normal to inspection and Yes capillary refill normal Office Procedures Cystoscopy Consent Discussed risk and benefit or proposed procedure with the patient. Information consent for procedure given to the patient. Discussed technical aspects, risks, benefits and alternatives in full. Addressed all of the patient's questions and concerns regarding the procedure. The patient demonstrated knowledge and understanding. They wish to proceed with this procedure. Preparation The patient was prepped in the usual manner. A healthcare administration intern was present and in the room. Genitalia was prepped with betadine solution in a sterile manner. Lidocaine Jelly 2% was placed into the urethra and 16Fr flexible Olympus cystoscope was inserted into the meatus after adequate lubrication. Procedure Cystoscopy performed using a disposable Urovue digital 16 Urdu cystoscope. Meatus circumcised Urethra anterior and posterior urethra normal Prostatic Urethra unremarkable Bladder examination with retroflexion of cystoscope Bladder Orifices normal shape and position Bladder Capacity median Trabeculations grade 2 Cellule Formation - Diverticulum Formation - Mucosal Erythema patchy erythema chemotherapy effect Bladder Tumor - DISPOSABLE SCOPE URO-G FLEXIBLE SCOPE Procedure code (CPT) selection complete Office Meds lidocaine HCl 2 % mucosal jelly in applicator Performing Provider: Kvng Armendariz MD [place] [facility] [place] [facility] Administered by: URI Starkey on 01/17/24 09:17 Dose Route Admin Location Dispensed Lot Number Expiration Date NDC Medical Laboratory Manager 10 mL intra-urethral 10 mL Comments: administered by Dr Armendariz nitrofurantoin monohydrate/macrocrystals 100 mg capsule Performing Provider: Kvng Armendariz MD [place] [facility] [place] [facility] Administered by: URI Starkey on 01/17/24 09:17 Dose Route Admin Location Dispensed Lot Number Expiration Date NDC Medical Laboratory Manager 100 mg PO 1 cap Comments: administered by Dr Armendariz naproxen 500 mg tablet Performing Provider: Kvng Armendariz MD [place] [facility] [place] [facility] Administered by: URI Starkey on 01/17/24 09:17 Dose Route Admin Location Dispensed Lot Number Expiration Date NDC Medical Laboratory Manager 500 mg PO 1 tab Comments: administered by Dr Armendariz Results AMB Urinalysis, Automated UA Leukoctes 0 Jordan/uL Last Edit by URI Starkey on 01/17/24 09:19 UA Nitrite Negative Last Edit by URI Starkey on 01/17/24 09:19 UA Urobilinogen 0.2 mg/dL Last Edit by URI Starkey on 01/17/24 09:19 UA Protein 0 mg/dL Last Edit by URI Starkey on 01/17/24 09:19 UA pH 6.0 Last Edit by URI Starkey on 01/17/24 09:19 UA Blood 200 Devang/uL Last Edit by Melanie Martins, RMA on 01/17/24 09:19 UA Specific [place] 1.015 Last Edit by Melanie Martins, A on 01/17/24 09:19 UA Ketone Negative Last Edit by Melaniepaul Martins, A on 01/17/24 09:19 UA Bilirubin 0 mg/dL Last Edit by Melanie Martins, A on 01/17/24 09:19 UA Glucose 0 mg/dL Last Edit by Melanie Martins, A on 01/17/24 09:19 Results Reviewed Results Reviewed: Laboratory Last Values Urine pH (Auto) 6.0 01/17/24 09:05 Specific [place] (Auto) 1.015 01/17/24 09:05 Urine Protein (Auto) 0 mg/dL 01/17/24 09:05 Glucose (UA)(Auto) 0 mg/dL 01/17/24 09:05 Urine Ketones (Auto) Negative 01/17/24 09:05 Urine Blood (Auto) 200 Devang/uL 01/17/24 09:05 Urine Nitrite (Auto) Negative 01/17/24 09:05 Urine Bilirubin (Auto) 0 mg/dL 01/17/24 09:05 Urine Urobilinogen (Auto) 0.2 mg/dL 01/17/24 09:05 Leukocyte Esterase (Auto) 0 Jordan/uL 01/17/24 09:05 Assessment & Plan Assessment & Plan (1) Bladder cancer: Comment: 03/19 high-grade superficial 04/21 CIS Code(s): C67.9 - Malignant neoplasm of bladder, unspecified Category: Medical Qualifiers: Bladder location: unspecified site Qualified Code(s): C67.9 - Malignant neoplasm of bladder, unspecified Plan six-month follow-up cysto Orders: Orders AMB Cystoscopy 01/17/24 C67.9 - Malignant neoplasm of bladder, unspecified AMB Urinalysis Automated 01/17/24 Z13.9 - Encounter for screening, unspecified Urine Cytology 01/17/24 C67.9 - Malignant neoplasm of bladder, unspecified Patient Instructions: Imaging studies, laboratory and physical exam results were discussed and reviewed in detail. No major barriers to patient understanding were identified. An opportunity to ask questions regarding the treatment plan was provided. All questions were answered. The patient expressed understanding and agreement with the above treatment plan. The patient is aware they should contact our office by phone for worsening of their current condition or the appearance of new urologic symptoms. Compliance is encouraged with any medications and followup testing that is ordered. It is a privilege to participate in the urologic care of your patient. If you have any questions or concerns regarding treatment for the above conditions, or other urologic issues, please do not hesitate to contact me. The office telephone contact is [phone]. This note is constructed using voice recognition software. While every effort has been made to ensure accuracy soaker helper errors may have been included. Yours sincerely, Dr Kvng Armendariz MD, [facility] - Urology Providers of Expert, Compassionate Care for the Genitourinary System Coding Level of Care Code Est Pt Level 3 (47729) Diagnoses Malignant neoplasm of urinary bladder, unspecified site C67.9 Bladder location: unspecified site
== END 2024-01-17 10:05 | disposition home or self-care (01) ==
PROVIDERS: PCP Internal Medicine; Visit Provider Urology
DX: C67.9 Malignant neoplasm of bladder, unspecified (principal)
CPT/HCPCS: 99213

== ENCOUNTER 2024-01-17 08:53 | Outpatient (REF) | payer OTHER, SELFPAY ==
[2024-01-17 17:47] LABS: Urine Cytology See Pathology rpt
== END 2024-01-17 08:54 | disposition home or self-care (01) ==
LOC: HO.LAB 08:53
PROVIDERS: PCP Internal Medicine; Visit Provider Urology
DX: C67.9 Malignant neoplasm of bladder, unspecified (principal)
CPT/HCPCS: 52000; 81003; 88112

== ENCOUNTER 2024-07-17 08:58 | Outpatient (AMB) | payer OTHER, SELFPAY ==
--- NOTE | 2024-07-17 09:04 | MHC.OFFVIS ---
Intake Visit Reasons: cysto Intake Note: Pt presents to the office today for a cystoscopy procedure. Cystoscope- Lot:[id number] Exp:07/06/26 Allergies Penicillins [PENICILLINS] Allergy (Unknown, Verified 07/17/24 09:04) UNKNOWN Mitomycin/cytarabine Allergy (Mild, Uncoded 07/17/24 09:04) Hives HPI Comments Details: Zen is a pleasant male. He is a patient of Dr. Poon. He is seen for the following urologic issues - bladder cancer - nephrolithiasis 6m checkup Reports intermittent dizziness with Flomax Discussed holding medication were necessary Would benefit from prostate procedure Bladder cystoscopy clear - no cancer Tight bladder neck 50 g prostate prior MRI Recommend prostate plasma button procedure Bladder Cancer: Superficial CIS Recurrent - last TUR 05/20 Bladder cancer was initially diagnosed Dr Armendariz 03/19. Bladder intervention(s) performed 03/19 , TURBT, Tis carcinoma in situ - 04/20 cysto bladder biopsy high-grade CIS - 04/21 TURBT with high-grade Ta and CIS - induction gemcitabine - 05/20 TURBT high grade in left UO Recurrence Risk per EORTC High Risk. 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 08/17 renal ultrasound. Bilateral renal cysts. Small stone left side - 04/21 MRI pelvis normal prostate no abnormalities noticed on wall of bladder Immunotherapy Induction 04/21. Boost 11/19, Induction [facility]/Cytarabine 05/20, Boost 12/20 3 weeks Nephrolithiasis/Urolithiasis: They are here for further evaluation of nephrolithiasis. Urolithiasis was diagnosed ongoing - prior renal cyst and nephrolithiasis. The patient previously had kidney stones whose composition w unknown. 24 Hour urine evaluation none on file. Prior treatment(s) include observation. Prior imaging includes 01/16 , a renal ultrasound - 3 cyst on right kidney. 7 mm stone. Left kidney 3 cysts up to 2.5 cm with 6 mm stone. Complex cyst on left side - 06/21 renal ultrasound bilateral 5 mm stones Current therapeutic plan will be to continue with imaging surveillance [facility] Medical History HTN (hypertension) Back pain History of kidney stones Bladder cancer Surgical History Hx of cystoscopy Hx of cystoscopy History of cystoscopy Hx of transurethral destruction of bladder lesion Social History Are you a primary care rep to a significant other at home: No Do you presently have visiting nurse or other home services: No Patient Tobacco Use Status: Never used Tobacco Review of Systems Const Denies chills and Denies fever(s) Card Reports no additional complaints and Denies syncope Resp Denies cough GI Denies abdominal pain and Denies heartburn Reports as per HPI and Denies change in libido Neuro Denies syncope Psych Denies change in libido Endo Denies change in libido Physical Exam Const General: cooperative, healthy appearing, comfortable and no acute distress Orientation/consciousness: patient oriented x3 HEENT Face and sinus: Yes normal facial exam Mouth: moist mucous membranes Neck Neck: Yes normal visual inspection, Yes full ROM and Yes trachea midline Chest Chest palpation & inspection: normal inspection of the chest Resp Effort & Inspection: normal respiratory effort, able to speak in complete sentences and no respiratory distress GI Inspection: Yes normal to inspection Back/Spine/Pelvis Cervical Spine: normal cervical lordosis Thoracic/Lumbar Spine: thoracic and lumbar spine normal to inspection Skin General skin exam: no rashes or lesions noted Neuro General: patient oriented x3, gait normal, tone normal and moves all extremities Extrem General: Yes normal to inspection and Yes capillary refill normal Office Procedures Cystoscopy Consent Discussed risk and benefit or proposed procedure with the patient. Information consent for procedure given to the patient. Discussed technical aspects, risks, benefits and alternatives in full. Addressed all of the patient's questions and concerns regarding the procedure. The patient demonstrated knowledge and understanding. They wish to proceed with this procedure. Preparation The patient was prepped in the usual manner. A electrolysis investigator was present and in the room. Genitalia was prepped with betadine solution in a sterile manner. Lidocaine Jelly 2% was placed into the urethra and 16Fr flexible Olympus cystoscope was inserted into the meatus after adequate lubrication. Procedure Cystoscopy performed using a disposable Urovue digital 16 Telugu cystoscope. Meatus circumcised Urethra anterior and posterior urethra normal Prostatic Urethra tight bladder neck Bladder examination with retroflexion of cystoscope Bladder Orifices normal shape and position Bladder Capacity Normal Trabeculations grade group 2 Cellule Formation occasional Diverticulum Formation - Mucosal Erythema - Bladder Tumor None [id number] DISPOSABLE SCOPE URO-G FLEXIBLE SCOPE Procedure code (CPT) selection complete Office Meds lidocaine HCl 2 % mucosal jelly in applicator Performing Provider: Kvng Armendariz MD Performing Location: [facility] [place] [facility] Administered by: My Mcfadden RN on 07/17/24 09:16 Dose Route Admin Location Dispensed Lot Number Expiration Date NDC Superintendent Meters 10 mL intra-urethral 10 mL nitrofurantoin monohydrate/macrocrystals 100 mg capsule Performing Provider: Kvng Armendariz MD Performing Location: [facility] [place] [facility] Administered by: My Mcfadden RN on 07/17/24 09:16 Dose Route Admin Location Dispensed Lot Number Expiration Date NDC Superintendent Meters 100 mg PO 1 cap Results AMB Urinalysis, Automated UA Leukoctes 0 Jordan/uL Last Edit by Rehana Ricks CMA on 07/17/24 09:08 UA Nitrite Negative Last Edit by Rehana Ricks CMA on 07/17/24 09:08 UA Urobilinogen 0.2 mg/dL Last Edit by Rehana Ricks CMA on 07/17/24 09:08 UA Protein 0 mg/dL Last Edit by Rehana Ricks CMA on 07/17/24 09:08 UA pH 6.0 Last Edit by Rehana Ricks CMA on 07/17/24 09:08 UA Blood 200 Devang/uL Last Edit by Rehana Ricks CMA on 07/17/24 09:08 UA Specific [place] 1.020 Last Edit by Rehana Ricks CMA on 07/17/24 09:08 UA Ketone Negative Last Edit by Rehana Ricks CMA on 07/17/24 09:08 UA Bilirubin 0 mg/dL Last Edit by Rehana Ricks CMA on 07/17/24 09:08 UA Glucose 0 mg/dL Last Edit by Rehana Ricks CMA on 07/17/24 09:08 Results Reviewed Results Reviewed: Laboratory Last Values Urine pH (Auto) 6.0 07/17/24 09:07 Specific [place] (Auto) 1.020 07/17/24 09:07 Urine Protein (Auto) 0 mg/dL 07/17/24 09:07 Glucose (UA)(Auto) 0 mg/dL 07/17/24 09:07 Urine Ketones (Auto) Negative 07/17/24 09:07 Urine Blood (Auto) 200 Devang/uL 07/17/24 09:07 Urine Nitrite (Auto) Negative 07/17/24 09:07 Urine Bilirubin (Auto) 0 mg/dL 07/17/24 09:07 Urine Urobilinogen (Auto) 0.2 mg/dL 07/17/24 09:07 Leukocyte Esterase (Auto) 0 Jordan/uL 07/17/24 09:07 Assessment & Plan Assessment & Plan (1) Bladder cancer: Comment: 03/19 high-grade superficial 04/21 CIS Code(s): C67.9 - Malignant neoplasm of bladder, unspecified Category: Medical Qualifiers: Bladder location: unspecified site Qualified Code(s): C67.9 - Malignant neoplasm of bladder, unspecified (2) Bladder outlet obstruction: Code(s): N32.0 - Bladder-neck obstruction Category: Medical Plan We discussed the nature of the decision and reasonable options for performing a prostate intervention. Interventions include TURP, GreenLight laser enucleation of the prostate, GreenLight laser ablation of the prostate, transurethral incision of the prostate, and I-Tend prostate procedure. Options such as medical therapy were discussed. The relative uncertainties and benefits related to each alternate procedure were adequately discussed. General surgical risks including, but not limited to, pain, bleeding, infection, myocardial infarction, pulmonary embolus, deep vein thrombosis and cerebrovascular accident which may result in further hospitalization were discussed. Full disclosure of the procedure as well as all major risks, benefits and complications were discussed including but not limited to damage to the urethra or bladder neck, recurrent BPH, retrograde ejaculation, bladder infection, urge, de susie frequency, incomplete emptying, dysuria, remote chance of erectile dysfunction, epididymitis, and meatal stenosis. The success rate of the procedure was discussed. Success of the procedure in the short-term does not necessarily guarantee that long-term success will be maintained. Suitable follow up will need to be maintained. The patient showed understanding of discussion. An opportunity was provided for questions to be answered and wishes to proceed with the following procedure. - bipolar plasma button prostate procedure Orders: Orders AMB Cystoscopy Today C67.9 - Malignant neoplasm of bladder, unspecified AMB Urinalysis Automated Today C67.9 - Malignant neoplasm of bladder, unspecified Urine Cytology Today C67.9 - Malignant neoplasm of bladder, unspecified Patient Instructions: This note is constructed using voice recognition software. While every effort has been made to ensure accuracy inter com servicer errors may have been included. Imaging studies, laboratory and physical exam results were discussed and reviewed in detail. No major barriers to patient understanding were identified. An opportunity to ask questions regarding the treatment plan was provided. All questions were answered. The patient expressed understanding and agreement with the above treatment plan. The patient is aware they should contact our office by phone for worsening of their current condition or the appearance of new urologic symptoms. Compliance is encouraged with any medications and followup testing that is ordered. It is a privilege to participate in the urologic care of your patient. If you have any questions or concerns regarding treatment for the above conditions, or other urologic issues, please do not hesitate to contact me. The office telephone contact is [phone]. Sincerely, Dr Kvng Armendariz MD, [facility] - Urology Compassionate Specialist Care for the Genitourinary System Coding Level of Care Code Est Pt Level 4 (92869) Complex EM visit Add On G2211 Diagnoses Malignant neoplasm of urinary bladder, unspecified site C67.9 Bladder location: unspecified site Bladder outlet obstruction N32.0 CPT Codes Cystoscopy - CPT: [id number] ([id number])
--- OUTSIDE RECORDS SUMMARY | 2024-07-17 09:30 | XMS_ITS | Clinical Summary ---
Author Organization [facility] it Address [address] [place] [address] Care Team Providers Care Groutman Name Role Phone Jaskaran Poon MD Primary Care Provider [phone] Encounters Date Type Department Care Team Description 06/04/2024 Telephone [facility] [address] [place] [address] Jaskaran Poon MD 06/04/2024 Telephone [facility] [address] [place] [address] Jaskaran Poon MD Appointment (Appointment needed ) from Last 3 Months Social History Tobacco Use Types Packs/Day Years Used Date Smoking Tobacco: Never Assessed Sex and Gender Information Value Date Recorded Sex Assigned at Not on file Legal Sex Male 10:43 AM EST Gender Identity Not on file Sexual Orientation Not on file Plan of Treatment Health Maintenance Due Date Last Done Comments DTaP,Tdap,and Td Vaccines (1 - Tdap) 02/19/1976 Pneumococcal Vaccine: 50+ Ye ars (1 of 1 - PCV) 2007 Zoster Vaccines (1 of 2) 2007 COVID-19 Vaccine ( - 2023-2 5 season) 2023 Abdominal Aortic Aneurysm (A AA) Screen 06/04/2024 Cholesterol Screening (Lipid Panel) 06/04/2024 Colorectal Cancer Screening: Colonoscopy 06/04/2024 Depression Screening 06/04/2024 Falls Risk Assessment 06/04/2024 Hepatitis C Screening 06/04/2024 Social Influencers of Health Screening 06/04/2024 Influenza Vaccine (Season Ended) 2024 RSV Immunization Adult Patie nts (1 - 1-dose 75+ series) 02/19/2032 HIB Vaccines Aged Out No longer eligi ble based on patient's age to complete this topic HPV Vaccines Aged Out No longer eligi ble based on patient's age to complete this topic Hepatitis A Vaccines Aged Out No long er eligible based on patient's age to complete this topic Hepatitis B Vaccines Aged Out No long er eligible based on patient's age to complete this topic IPV Vaccines Aged Out No longer eligi ble based on patient's age to complete this topic MMR Vaccines Aged Out No longer eligi ble based on patient's age to complete this topic Meningococcal ACWY Vaccine Aged Out N o longer eligible based on patient's age to complete this topic Meningococcal B Vaccine Aged Out No l onger eligible based on patient's age to complete this topic RSV Immunization Patients Un collin 20 months Aged Out No longer eligible b ased on patient's age to complete this topic Varicella Vaccines Aged Out No longer eligible based on patient's age to complete this topic Care Teams Groutman Relationship Specialty Start Date End Date Jaskaran Poon MD PCP - General 03/16/13
== END 2024-07-17 09:39 | disposition home or self-care (01) ==
LOC: HO.HUSH 08:58
PROVIDERS: PCP Internal Medicine; Visit Provider Urology
DX: C67.9 Malignant neoplasm of bladder, unspecified (principal); N32.0 Bladder-neck obstruction
CPT/HCPCS: 52000; 99214

== ENCOUNTER 2024-07-17 08:58 | Outpatient (REF) | payer OTHER, SELFPAY ==
[2024-07-17 16:11] LABS: Urine Cytology See Pathology rpt
== END 2024-07-17 08:59 | disposition home or self-care (01) ==
LOC: HO.LNP 08:58
PROVIDERS: PCP Internal Medicine; Visit Provider Urology
DX: C67.9 Malignant neoplasm of bladder, unspecified (principal); N32.89 Other specified disorders of bladder; R82.998 Other abnormal findings in urine
CPT/HCPCS: 52000; 81003; 88112

== ENCOUNTER 2024-08-22 13:57 | Outpatient (AMB) | payer OTHER, SELFPAY ==
--- NOTE | 2024-08-22 13:59 | A.OFFVIS_ITS ---
Intake Visit Reasons: Question on procedure Intake Note: Patient is present for QUESTIONS ON PROCEDURE Urology Medication:TAMSULOSIN Antibiotic Allergy:PENICILLIONS,MITOMYCIN Blood Thinner:NONE Sales Project Coordinator Required: No Allergies Penicillins (PENICILLINS) Allergy (Unknown, Verified 08/22/24 14:00) UNKNOWN Mitomycin/cytarabine Allergy (Mild, Uncoded 08/22/24 14:00) Hives HPI Comments Details: Zen is a pleasant male. He is a patient of Dr. Poon. He is seen for the following urologic issues - bladder cancer - nephrolithiasis Telemedicine Evaluation 15 min Consultation Pull Eileen Video Would like to defer prostate procedure Has upcoming work-related commitments Questions answered Review in January with office cystoscopy Reports intermittent dizziness with Flomax Discussed holding medication were necessary Would benefit from prostate procedure Bladder cystoscopy clear - no cancer Tight bladder neck 50 g prostate prior MRI Recommend prostate plasma button procedure - thinking early new 2025 Bladder Cancer: Superficial CIS Recurrent - last TUR 05/20 Bladder cancer was initially diagnosed Dr Armendariz 03/19. Bladder intervention(s) performed 03/19 , TURBT, Tis carcinoma in situ - 04/20 cysto bladder biopsy high-grade CIS - 04/21 TURBT with high-grade Ta and CIS - induction gemcitabine - 05/20 TURBT high grade in left UO Recurrence Risk per EORTC High Risk. 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 08/17 renal ultrasound. Bilateral renal cysts. Small stone left side - 04/21 MRI pelvis normal prostate no abnormalities noticed on wall of bladder Immunotherapy Induction 04/21. Boost 11/19, Induction [facility]/Cytarabine 05/20, Boost 12/20 3 weeks Nephrolithiasis/Urolithiasis: They are here for further evaluation of nephrolithiasis. Urolithiasis was diagnosed ongoing - prior renal cyst and nephrolithiasis. The patient previously had kidney stones whose composition w unknown. 24 Hour urine evaluation none on file. Prior treatment(s) include observation. Prior imaging includes 01/16 , a renal ultrasound - 3 cyst on right kidney. 7 mm stone. Left kidney 3 cysts up to 2.5 cm with 6 mm stone. Complex cyst on left side - 06/21 renal ultrasound bilateral 5 mm stones Current therapeutic plan will be to continue with imaging surveillance COUNTS INCLUDE 234 BEDS AT THE [facility] Medical History HTN (hypertension) Back pain History of kidney stones Bladder cancer Surgical History Hx of cystoscopy Hx of cystoscopy History of cystoscopy Hx of transurethral destruction of bladder lesion Social History Are you a primary infant childcare provider to a significant other at home: No Do you presently have visiting nurse or other home services: No Patient Tobacco Use Status: Never used Tobacco Review of Systems Const All systems reviewed & are unremarkable except as noted in HPI and below Reports no additional complaints Resp Reports no additional complaints GI Reports no additional complaints Reports as per HPI Musc Reports no additional complaints Physical Exam Telemedicine evaluation Appropriate responses Regular breathing rate and rhythm HEENT Head: Yes normal to inspection Ears: hearing grossly normal bilaterally Eyes General: appearance normal, both eyes and all related structures Neck Neck: Yes normal visual inspection Chest Chest palpation & inspection: normal inspection of the chest Resp Effort & Inspection: normal respiratory effort and able to speak in complete sentences Telehealth Telehealth Telehealth Platform: [employer] Location of provider rendering services: practice address Location of patient: address on file Patient Identification confirmed using: Name, : Yes Telehealth method: video Patient verbally consented to treatment: Yes Patient verbally consented to billing insurance company: Yes Patient informed of any privacy concerns related to visit: Yes Minutes spent on Phone/Video with Pt.: 15 Assessment & Plan Assessment & Plan (1) Bladder cancer: Comment: 03/19 high-grade superficial 04/21 CIS Code(s): C67.9 - Malignant neoplasm of bladder, unspecified Category: Medical Qualifiers: Bladder location: unspecified site Qualified Code(s): C67.9 - Malignant neoplasm of bladder, unspecified (2) Bladder outlet obstruction: Code(s): N32.0 - Bladder-neck obstruction Category: Medical Plan Office cystoscopy or early January Patient Instructions: This note is constructed using voice recognition software. While every effort has been made to ensure accuracy artistic associate errors may have been included. Imaging studies, laboratory and physical exam results were discussed and reviewed in detail. No major barriers to patient understanding were identified. An opportunity to ask questions regarding the treatment plan was provided. All questions were answered. The patient expressed understanding and agreement with the above treatment plan. The patient is aware they should contact our office by phone for worsening of their current condition or the appearance of new urologic symptoms. Compliance is encouraged with any medications and followup testing that is ordered. It is a privilege to participate in the urologic care of your patient. If you have any questions or concerns regarding treatment for the above conditions, or other urologic issues, please do not hesitate to contact me. The office telephone contact is [phone]. Sincerely, Dr Kvng Armendariz MD, [facility] - Urology Compassionate Specialist Care for the Genitourinary System Coding Level of Care Code Tele Est Pt Level 3 (82538) Complex EM visit Add On G2211 Diagnoses Malignant neoplasm of urinary bladder, unspecified site C67.9 Bladder location: unspecified site Bladder outlet obstruction N32.0
--- OUTSIDE RECORDS SUMMARY | 2024-08-22 16:41 | XMS_ITS | Clinical Summary ---
Author Organization [facility] it Address [address] [place] [address] Care Team Providers Care Escalation Engineer Name Role Phone Jaskaran Poon MD Primary Care Provider [phone] Encounters Date Type Department Care Team Description 06/04/2024 Telephone [facility] [address] [place] [address] Jaskaran Poon MD 06/04/2024 Telephone [facility] [address] [facility] [address] [place] [address] Jaskaran Poon MD Appointment (Appointment [...] age to complete this topic Care Teams Escalation Engineer Relationship Specialty Start Date End Date Jaskaran Poon MD PCP - General 03/16/13
== END 2024-08-22 15:46 | disposition home or self-care (01) ==
LOC: HO.HUSH 13:57
PROVIDERS: PCP Internal Medicine; Visit Provider Urology
DX: C67.9 Malignant neoplasm of bladder, unspecified (principal); N32.0 Bladder-neck obstruction
CPT/HCPCS: 99213; G2211